=== PATIENT | male | born 1945 | race Caucasian/White ===

== ENCOUNTER 2016-09-27 22:51 | Inpatient (IN) | payer MEDICARE, MEDICAID ==
[~2016-09-27] VITALS: Ht 180.3 cm; Wt 66.2 kg
[~2016-09-27 22:51] MED LIST: ADVAIR 250-501 EACH INH; ADVAIR 500-501 EACH INH; ALBUTEROL SULF8.5 GM INH; AMBIEN10 M1 ORAL; AMLODIPINE BESYL5 MG PO; ASPIRIN81 MG ORAL; BACTRIM-DS1 EA ORAL; COLACE100 MG ORAL; COMBIVENT RESPIM4 GM IH; COMBIVENT2 PUFFS HHN; DOC-Q-LACE100 M1 ORAL; DSS250 MG PO; FLOMAX0.4 MG PO; LOTRISONE CREAM15 GM TP; MILK OF MA400 MG/51 ORAL; MIRTAZAPINE30 MG ORAL; MIRTAZAPINE30 MG PO; NORVASC5 MG ORAL; PROMETHAZINE-C118 M1 ORAL; SPIRIVA18 MCG INH; TAMSULOSIN HCL0.4 MG ORAL; TEMAZEPAM15 MG ORAL; TRAMADOL HCL50 MG ORAL; TYLENOL WITH C1 EACH ORAL
[2016-09-27] MEDS ORDERED: Morphine Sulfate 4mg/ml Inj IVP ONE (23:00)
--- NOTE | 2016-09-27 23:09 | Emergency Room Report ---
History of Present Illness General Chief Complaint: Abdominal Pain Source: Patient, EMS Present Illness HPI Is a 71-year-old male with multiple medical history. He has a history of heavy smoking with COPD and lung cancer. He has a lobectomy done in the past. He's on 5 L of nasal cannula. Denies any abdominal surgery. Patient presents with chief complaint abdominal pain and swelling the last 2 days. [place] nauseous but no vomiting. No bowel movement for 2 days. Pain is diffuse. 9 out of 10. No fever or chills. Nothing made it better. Palpation made it worse. Allergies: Coded Allergies: No Known Allergies (Unverified , 03/22/12) Patient History Past Medical History: see triage record, old chart reviewed, COPD Past Surgical History: other Pertinent Family History: none Social History: Reports: smoking - History Immunizations: other Reviewed Nursing Documentation: PMH: Agreed, PSxH: Agreed Nursing Documentation-PMH Hx Cardiac Problems: Yes Hx Hypertension: Yes Hx Asthma: No Hx Cancer: Yes Hx Gastrointestinal Problems: Yes - GERD Hx Neurological Problems: No Review of Systems Eye: Denies: blurred vision, eye pain ENT: Denies: ear pain, nose congestion, throat swelling Respiratory: Denies: cough, shortness of breath Cardiovascular: Denies: chest pain, palpitations Gastrointestinal: Reports: abdominal pain, Denies: diarrhea, nausea, vomiting Musculoskeletal: Denies: back pain, joint pain Skin: Denies: rash Neurological: Denies: headache, numbness Endocrine: Denies: increased thirst, increased urine Hematologic/Lymphatic: Denies: easy bruising All Other Systems: negative except mentioned in HPI Physical Exam Vital Signs Date Time Temp Pulse Resp B/P Pulse Ox O2 Delivery O2 Flow Rate FiO2 09/27/16 22:52 97.7 103 20 137/74 97 Nasal Cannula 5.0 vitals unremarkable Sp02 EP Interpretation: reviewed, normal - With oxygen General Appearance: alert, mild distress, thin, Chronically Ill Head: normocephalic, atraumatic Eyes: bilateral eye EOMI, bilateral eye PERRL ENT: hearing grossly normal, normal pharynx Neck: full range of motion, supple, no meningismus Respiratory: chest non-tender, lungs clear, decreased breath sounds Cardiovascular #1: regular rate, rhythm, no murmur Gastrointestinal: no mass, no organomegaly, no bruit, non-distended, abnormal bowel sounds - No bowel sounds, distended, tenderness - Diffuse tenderness Musculoskeletal: back normal, normal range of motion Neurologic: alert, oriented x3 Psychiatric: mood/affect normal Skin: warm/dry Medical Decision Making Diagnostic Impression: Primary Impression: SBO (small bowel obstruction) Additional Impressions: Constipation Qualified Codes: K59.00 - Constipation, unspecified COPD (chronic obstructive pulmonary disease) Qualified Codes: J42 - Unspecified chronic bronchitis Anemia in chronic illness Hyponatremia ER Course Present with abdominal pain and distention. CT scan is significant for small bowel instruction versus ileus. He is also very constipated. NG tube placed. We'll also give an enema. No evidence of perforation. Patient be admitted to the hospital. His respiratory status is at baseline. Laboratory Tests Test 09/27/16 23:15 White Blood Count 8.7 K/UL (4.8-10.8) Red Blood Count 3.29 M/UL (4.70-6.10) L Hemoglobin 10.7 G/DL (14.2-18.0) L Hematocrit 30.6 % (42.0-52.0) L Mean Corpuscular Volume 93 FL (80-99) Mean Corpuscular Hemoglobin 32.4 PG (27.0-31.0) H Mean Corpuscular Hemoglobin Concent 34.8 G/DL (32.0-36.0) Red Cell Distribution Width 14.8 % (11.6-14.8) Platelet Count 307 K/UL (150-450) Mean Platelet Volume 5.9 FL (6.5-10.1) L Neutrophils (%) (Auto) 79.7 % (45.0-75.0) H Lymphocytes (%) (Auto) 5.5 % (20.0-45.0) L Monocytes (%) (Auto) 12.9 % (1.0-10.0) H Eosinophils (%) (Auto) 0.1 % (0.0-3.0) Basophils (%) (Auto) 1.8 % (0.0-2.0) Prothrombin Time 11.0 SEC (9.30-11.50) Prothromb Time International Ratio 1.1 (0.9-1.1) Activated Partial Thromboplast Time 28 SEC (23-33) Sodium Level 123 mEQ/L (135-145) L Potassium Level 5.0 mEQ/L (3.4-4.9) H Chloride Level 82 mEQ/L (98-107) L Carbon Dioxide Level 28 mEQ/L (20-30) Anion Gap 13 (5-15) Blood Urea Nitrogen 15 mg/dL (7-23) Creatinine 0.8 mg/dL (0.7-1.2) Estimat Glomerular Filtration Rate mL/min (>60) Glucose Level 128 mg/dL (74-106) H Calcium Level 8.6 mg/dL (8.6-10.2) Total Bilirubin 0.4 mg/dL (0.0-1.2) Aspartate Amino Transf (AST/SGOT) 27 U/L (5-40) Alanine Aminotransferase (ALT/SGPT) 13 U/L (3-41) Alkaline Phosphatase 56 U/L (40-129) Troponin I < 0.30 ng/mL (<=0.30) Total Protein 7.0 g/dL (6.6-8.7) Albumin 3.3 g/dL (3.5-5.2) L Globulin 3.7 g/dL Albumin/Globulin Ratio 0.8 (1.0-2.7) L Lipase 7 U/L (< 60) Lab Results Impression labs with hyponatremia Rhythm Strip Diag. Results EP Interpretation: yes Rate: 100 Rhythm: NSR, no PVC's, no ectopy CT/MRI/US Diagnostic Results CT/MRI/US Diagnostic Results : Imaging Test Ordered: ct abd and pelvis Impression Read by radiologist. Prominent small bowel which may be ileus versus small bowel transient. Transition point near ileocecal junction. Significant stool from the cecum to transverse colon. Distended bladder. Last Vital Signs Date Time Temp Pulse Resp B/P Pulse Ox O2 Delivery O2 Flow Rate FiO2 09/27/16 22:52 97.7 103 20 137/74 97 Nasal Cannula 5.0 Status: improved Disposition: ADMITTED INPATIENT Condition: Serious CARLENE RADER M.D. September 27, 2016 23:09
[2016-09-27] MEDS ORDERED: Tubing IV Cassette IV ONE (23:27)
[2016-09-27 23:44] LABS: INR 1.1 (0.9-1.1)
[2016-09-27 23:48] LABS: BASOPHILS % (AUTO) 1.8 % (0.0-2.0); EOSINOPHILS % (AUTO) 0.1 % (0.0-3.0); LYMPHOCYTES % (AUTO) 5.5 % (20.0-45.0); MEAN CORPUSCULAR HEMOGLOBIN 32.4 PG (27.0-31.0); MEAN CORPUSCULAR HGB CONC 34.8 G/DL (32.0-36.0); MEAN CORPUSCULAR VOLUME 93 FL (80-99); MEAN PLATELET VOLUME 5.9 FL (6.5-10.1); MONOCYTES % (AUTO) 12.9 % (1.0-10.0); NEUTROPHILS % (AUTO) 79.7 % (45.0-75.0); PLATELET COUNT 307 K/UL (150-450); RED BLOOD COUNT 3.29 M/UL (4.70-6.10); RED CELL DISTRIBUTION WIDTH 14.8 % (11.6-14.8); WHITE BLOOD COUNT 8.7 K/UL (4.8-10.8)
[2016-09-27 23:49] LABS: TROPONIN I < 0.30 ng/mL (<=0.30)
[2016-09-27 23:52] LABS: ALANINE AMINOTRANSFERASE 13 U/L (3-41); ALBUMIN/GLOBULIN RATIO 0.8 (1.0-2.7); ANION GAP 13 (5-15); ASPARTATE AMINO TRANSFERASE 27 U/L (5-40); CALCIUM 8.6 mg/dL (8.6-10.2); CARBON DIOXIDE 28 mEQ/L (20-30); CHLORIDE 82 mEQ/L (98-107); CREATININE 0.8 mg/dL (0.7-1.2); HEMOLYSIS 98; LIPASE 7 U/L (< 60); SODIUM 123 mEQ/L (135-145)
[2016-09-28] VITALS (7 sets, daily range): BP systolic 111–146; BP diastolic 59–94
[2016-09-28] MEDS ORDERED: Fleet's Enema 133ml RECTAL ONE (01:15)
[2016-09-28] MEDS ORDERED: Morphine Sulfate 4mg/ml Inj IVP PRN (01:45)
[2016-09-28] MEDS ORDERED: LORazepam 1mg tab ORAL PRN (01:45)
[2016-09-28] MEDS ORDERED: Morphine Sulfate 4mg/ml Inj IVP ONE (02:45)
[2016-09-28] MEDS: DuoNeb 0.5-3(2.5)mg/3ml neb HHN SCH ×6 (03:04→23:00)
[2016-09-28 05:45] LABS: APPEARANCE,URINE CLEAR; KETONES,URINE NEGATIVE (NEGATIVE); LEUKOCYTE ESTERASE ,URINE NEGATIVE (NEGATIVE); NITRITE,URINE NEGATIVE (NEGATIVE); PH,URINE 6 (4.5-8.0); PROTEIN,URINE 1+ (NEGATIVE); UROBILINOGEN,URINE NORMAL MG/DL (0.0-1.0)
[2016-09-28 06:05] LABS: BACTERIA,URINE FEW /HPF; RBC,URINE 0-2 /HPF (0 - 0); SQUAMOUS EPITHELIAL CELL,UR FEW /LPF (NONE/OCC); WBC,URINE 0-2 /HPF (0 - 0)
[2016-09-28] MEDS: Morphine Sulfate 2mg/ml Inj IVP PRN ×2 (06:42→16:25)
--- NOTE | 2016-09-28 09:44 | Diagnostic Imaging Report ---
Clinical Indication: 5/10 abdominal pain with palpitations findings 3 days, last bowel movement 3 days ago Technique: No oral contrast utilized, per emergency room physician request IV administration nonionic contrast. Venous phase spiral acquisition obtained through the abdomen and pelvis. Multiplanar reconstructions were generated. Total dose length product 719 mGycm. CTDIvol(s) 14 mGy. Dose reduction achieved using automated exposure control Comparison: None Findings: There is considerable retained colonic stool. The appendix is probably normal. No evidence of diverticulosis or diverticulitis. There is marked dilatation of most of the small bowel, which is fluid-filled. Some nondilated small bowel loops are seen in the upper mesenteric midline. Uncertain as whether these are proximal or distal loops. It does appear that the small bowel distention extends to the level of the terminal ileum, the distalmost portion of which may be narrowed at the level of the ileocecal valve. The stomach is also massively distended by fluid. There is trace free intraperitoneal fluid. No free intraperitoneal air. The liver is unremarkable. The gallbladder is mildly distended. No gross gallstones. No biliary ductal dilatation. The pancreas, spleen, right adrenal are unremarkable. There is a 15 x 9 mm left adrenal mass. There are bilateral renal subcentimeter low-attenuation lesions which are too small to characterize. The bladder is considerably distended. The prostate is enlarged, measuring 6.3 x 4.7 x 6.7 cm. The included lung bases demonstrate extensive chronic appearing fibrotic changes and hyperinflation. There is calcified pleural scarring on the right, involving both the lateral pleural surface and the diaphragmatic pleural surface. There is a small right-sided pleural effusion. The heart is upper limits of normal in size. The bones demonstrate degenerative spondylosis changes. Impression: Diffuse small bowel distention, etiology not definitely demonstrated. There is some nondilated small bowel, the location of which is uncertain. There is suggestion of stricture or mass at the level of the terminal ileum which could be etiology. Enlarged prostate Distended bladder, possibly related to the above Evidence of constipation. Correlate with clinical findings 15 x 9 mm left adrenal mass, likely but not definitely a benign adenoma. Bilateral renal subcentimeter low-attenuation lesions, too small to characterize, most likely benign simple cortical cysts. 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 The CT scanner at [facility] is accredited by the [employer] and the scans are performed using protocols designed to limit radiation exposure to as low as reasonably achievable to attain images of sufficient resolution adequate for diagnostic evaluation.
[2016-09-28] MEDS: Heparin 5000 units/ml inj SUBQ SCH ×2 (10:00→21:11)
--- NOTE | 2016-09-28 13:17 | Diagnostic Imaging Report ---
Indication: Status post nasogastric tube placement Technique: One view of the chest Comparison: 02/17/2016 Findings: There is a nasogastric tube, tip of which makes a hairpin loop within the mid esophagus. There is hyperinflation of the left lung with bullous change at the left lung base. There is parenchymal opacity at the right lung base which was not evident previously. There is increased interstitial disease in the right lung diffusely. There is evidence of right lung volume loss; reportedly patient has had prior right lobectomy for lung carcinoma. There is generalized mild chronic appearing interstitial prominence. Impression: Malposition of nasogastric tube. This was recognized by the emergency room physician Right basilar parenchymal opacity. New since prior study of February 2016, concerning for pneumonia. Recurrent mass is not excludable. Interstitial disease, appearance of which is suggestive of chronic process but progressive since previous study. COPD changes This agrees with the preliminary interpretation provided by the emergency room physician
--- NOTE | 2016-09-28 14:59 | History & Physical ---
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 September 28, 2016 14:59
[2016-09-28] MEDS ORDERED: Fleet's Mineral Oil Enema RECTAL ONE ×4 (16:00→21:00)
--- NOTE | 2016-09-28 16:08 | Consultation ---
Consult Note Consult Note Surgery Patient seen and examined. Very very poor historian. Provides very little data and/or history. Questions repeatedly asked in different ways, however provides little. Denies prior abdominal surgery. Reports several days feeling distended. Has not had a bowel movement for 2 - 3 days. Denies nausea/vomitting. Came in because of abdominal pain only. Denies prior abdominal surgeries. Not sure what surgeries he's had hwoever. Denies fevers/chills. Has been refusing NGT and enema PMHX: lung CA per records, patient provides no PMHx PSHx: patient not certain, but sure he has not had abdominal surgery ROS very limited as per above FamHx: non contrib SocHx: Denies substance abuse when asked ROS: limited, as per above. PE. Vitals reviewed abdomen distended. Non tender in all quadrants. no hernia palpable, no guarding , no peritonitis Labs reviewed CT personally reviewed - agree with radiology -- colon full of stool to the ICV and global SB dilatation with stomach full of fluid Assessment/Plan SBO advised patient he needs NGT still refused Patient refusing all treatments - advised him that if he does not allow us to treat him then he may need surgery for something that likely does not need surgery at all attempted to reason with him discussed enema - as it seems he may have an SBO due to severe constipation given findings on the CT he says amenable to an enema CATHY ABARCA September 28, 2016 16:08
[2016-09-28] MEDS: D5NS 1,000 ML IV SCH (16:25)
--- NOTE | 2016-09-28 22:31 | General Progress Note ---
Assessment/Plan Assessment/Plan Assessment - Ileus, dysmotility, vs SBO - Metastatic lung CA with poor Px - COPD, O2 dependent - HTN Recommendations - Trial of IV erythro - can consider Relistor or Amitiza - PPI - surgical eval/f/u - NGT, if accepts Subjective Allergies: Coded Allergies: No Known Allergies (Unverified , 03/22/12) Objective Last 24 Hour Vital Signs Date Time Temp Pulse Resp B/P Pulse Ox O2 Delivery O2 Flow Rate FiO2 09/28/16 20:01 97.8 103 20 111/59 95 Nasal Cannula 5.0 09/28/16 19:20 Nasal Cannula 09/28/16 19:18 Nasal Cannula 09/28/16 16:00 108 09/28/16 15:45 Nasal Cannula 5.0 09/28/16 15:45 100 18 98 Nasal Cannula 5.0 09/28/16 15:19 97.3 110 20 138/73 95 Room Air 09/28/16 12:00 100 09/28/16 11:19 97.8 108 20 122/62 95 Room Air 09/28/16 10:50 104 18 97 Nasal Cannula 5.0 09/28/16 10:50 107 18 97 Nasal Cannula 5.0 09/28/16 08:00 116 09/28/16 07:44 97.9 111 20 140/94 96 Room Air 09/28/16 07:10 Nasal Cannula 5.0 09/28/16 07:10 106 17 98 Nasal Cannula 5.0 09/28/16 05:42 98.6 104 17 116/59 100 Nasal Cannula 5.0 09/28/16 04:47 104 17 116/59 100 Nasal Cannula 5.0 09/28/16 03:18 112 17 93 Nasal Cannula 5.0 09/28/16 03:06 98.6 09/28/16 03:05 111 17 97 Nasal Cannula 5.0 09/28/16 03:04 111 17 Nasal Cannula 5.0 09/28/16 02:38 116 19 129/70 97 Nasal Cannula 5.0 09/28/16 00:46 98.6 107 19 146/76 97 Nasal Cannula 5.0 09/28/16 00:02 97.7 09/27/16 22:52 97.7 103 20 137/74 97 Nasal Cannula 5.0 Intake and Output 09/27/16 09/28/16 19:00 07:00 Intake Total 500 ml Balance 500 ml Intake IV Total 500 ml # Voids 1 Laboratory Tests 09/27/16 23:15: White Blood Count 8.7, Red Blood Count 3.29L, Hemoglobin 10.7L, Hematocrit 30.6L , Mean Corpuscular Volume 93, Mean Corpuscular Hemoglobin 32.4H, Mean Corpuscular Hemoglobin Concent 34.8, Red Cell Distribution Width 14.8, Platelet Count 307, Mean Platelet Volume 5.9L, Neutrophils (%) (Auto) 79.7H, Lymphocytes (%) (Auto) 5.5L, Monocytes (%) (Auto) 12.9H, Eosinophils (%) (Auto) 0.1, Basophils (%) (Auto) 1.8, Prothrombin Time 11.0, Prothromb Time International Ratio 1.1, Activated Partial Thromboplast Time 28, Sodium Level 123L, Potassium Level 5.0H, Chloride Level 82L, Carbon Dioxide Level 28, Anion Gap 13, Blood Urea Nitrogen 15, Creatinine 0.8, Estimat Glomerular Filtration Rate , Glucose Level 128H, Calcium Level 8.6, Total Bilirubin 0.4, Aspartate Amino Transf (AST/ SGOT) 27, Alanine Aminotransferase (ALT/SGPT) 13, Alkaline Phosphatase 56, Troponin I < 0.30, Total Protein 7.0, Albumin 3.3L, Globulin 3.7, Albumin/ Globulin Ratio 0.8L, Lipase 7 09/28/16 05:30: Urine Color Yellow, Urine Appearance Clear, Urine pH 6, Urine Specific [place] 1.010, Urine Protein 1+H, Urine Glucose (UA) Negative, Urine Ketones Negative, Urine Occult Blood Negative, Urine Nitrite Negative, Urine Bilirubin Negative, Urine Urobilinogen Normal, Urine Leukocyte Esterase Negative, Urine RBC 0-2H, Urine WBC 0-2, Urine Squamous Epithelial Cells Few, Urine Bacteria Few Height (Feet): 5 Height (Inches): 11.00 Weight (Pounds): 146 ROSA BRYAN September 28, 2016 22:31
[2016-09-29 00:18] VITALS: BP 107/52
[2016-09-29] MEDS: D5NS 1,000 ML IV SCH ×3 (02:09→20:29)
--- NOTE | 2016-09-29 02:16 | History and Physical Report ---
DATE OF ADMISSION: 09/28/2016 REASON FOR ADMISSION: Small bowel obstruction. HISTORY OF PRESENT ILLNESS: This is a 71-year-old male with history of COPD stage IV on O2 3 to 4 liters at home, [id number] lung cancer, status post resection, BPH, insomnia who is undergoing chemotherapy for lung cancer as well as radiation therapy for bony mets at [facility], who presented to the emergency room because of abdominal pain and nausea that started 3 days ago. The patient states that his abdomen is very distended over the last 2 to 3 days. He feels very nauseous, but has not vomited. His abdominal pain is 9/10 in intensity. The patient had a CT of his abdomen and pelvis in the emergency room with contrast that showed diffuse but small bowel distention with possible mass to the level of terminal ileum consistent with a small bowel obstruction. The patient refused NG tube after it caused him too much pain while placing in the emergency room. PAST MEDICAL HISTORY: Includes, 1. Chronic obstructive pulmonary disease gold stage IV, on home oxygen 4 to 5 liters. 2. Right lung non-small cell carcinoma with metastasis to bone and brain status post radiation, lobectomy and chemotherapy. 3. Benign prostatic hypertrophy. 4. Insomnia. 5. History of heroin abuse. 6. Hypertension. PAST SURGICAL HISTORY: Lobectomy. ALLERGIES: No known drug allergies. MEDICATIONS: Reviewed in [employer]. SOCIAL HISTORY: The patient is a former smoker. Heroin user. He does not smoke or use any drugs. Right now, he does not drink alcohol. He lives at assisted living facility at [facility]. PHYSICAL EXAMINATION: VITAL SIGNS: Temperature is 97.8 degrees, pulse is 108, respiratory rate 20, blood pressure 122/62, and O2 saturation 95% on room air. GENERAL: In no acute distress. The patient is very anxious. HEENT: Normocephalic/atraumatic. NECK: Supple. No JVD. LUNGS: Clear to auscultation bilaterally. No crackles, rhonchi, or rales. CARDIOVASCULAR: Regular rate and rhythm. Normal S1 and S2. ABDOMEN: Firm and distended. No bowel sounds appreciated. No rebound tenderness. EXTREMITIES: No clubbing, cyanosis, or edema. PSYCH: Anxious, but appropriate mood. SKIN: No rashes. Normal skin tone. LABORATORY AND DIAGNOSTIC DATA: CBC, white count of 8.7, hemoglobin 10.7, and platelet count 307,000. BMP, sodium 143, potassium 5, chloride 82, CO2 28, BUN 15, and creatinine 0.8. Lipase is 7. INR is 1.1. UA 0 to 2 red blood cells, no white blood cells. 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 ASSESSMENT: 1. Abdominal distention with nausea concerning for small bowel obstruction versus ileus secondary to narcotic bowel. 2. Chronic obstructive pulmonary disease gold stage IV, on home oxygen. 3. Benign prostatic hypertrophy. 4. 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 5. History of heroine abuse. 6. Hypertension. 7. Insomnia. 8. Hypovolemic, hyponatremia and hyperkalemia. PLAN: 1. Telemetry. 2. Surgery consult with Dr. Suggs. 3. GI consult with Dr. John. 4. NPO. 5. I discussed at length the importance of placing NG tube. We will try to give morphine before NG tube placement, which will help with his symptoms through decompression. 6. D5 NS at 100 mL/hour. 7. Code status is full code. 8. DVT prophylaxis with heparin. Sabas Haile MD DR: SAILAJA JOB#: [id number] CC:
[2016-09-29] MEDS: DuoNeb 0.5-3(2.5)mg/3ml neb HHN SCH ×6 (03:00→22:58)
[2016-09-29 04:04] VITALS: BP 109/62
[2016-09-29 08:00] VITALS: BP 116/46
[2016-09-29] MEDS: Pantoprazole Inj IVP SCH (08:36)
[2016-09-29] MEDS: Erythromycin Inj 50 MG in NS 55 ML IVPB SCH ×3 (08:36→20:30)
[2016-09-29] MEDS: Heparin 5000 units/ml inj SUBQ SCH ×2 (08:37→20:33)
[2016-09-29] MEDS: Advair 250/50 Inhaler - 14 dose INH SCH ×2 (09:06→18:00)
--- NOTE | 2016-09-29 11:09 | General Progress Note ---
Progress Note Progress Note Surgery Patient hostile. Tells me to leave. Doesn't want to talk Nonetheless, explained to him that enemas were unsuccessful, needs an NGT risks of bowel perforation very high should he go untreated agrees to NGT abdomen distended, non tender he continues to deny nausea/vomitting isn't having abdominal pain, just feels distended abdomen distended non tender plan nursing to place NGT, continue it on LCWS will need fluid resuscitation once on suction Labs daily with NGT and maintenance IVF once decompressed consider Upper GI w/ SBFT to evaluate the terminal ileum CATHY ABARCA September 29, 2016 11:09
[2016-09-29 11:18] LABS: MEAN CORPUSCULAR HEMOGLOBIN 30.2 PG (27.0-31.0); MEAN CORPUSCULAR HGB CONC 32.4 G/DL (32.0-36.0); MEAN CORPUSCULAR VOLUME 93 FL (80-99); MEAN PLATELET VOLUME 6.5 FL (6.5-10.1); PLATELET COUNT 305 K/UL (150-450); RED BLOOD COUNT 3.23 M/UL (4.70-6.10); RED CELL DISTRIBUTION WIDTH 15.3 % (11.6-14.8); WHITE BLOOD COUNT 4.2 K/UL (4.8-10.8)
[2016-09-29 11:26] LABS: ANION GAP 11 (5-15); CALCIUM 7.5 mg/dL (8.6-10.2); CARBON DIOXIDE 32 mEQ/L (20-30); CHLORIDE 85 mEQ/L (98-107); CREATININE 0.8 mg/dL (0.7-1.2); HEMOLYSIS 2; POTASSIUM 3.6 mEQ/L (3.4-4.9); SODIUM 128 mEQ/L (135-145)
--- NOTE | 2016-09-29 11:43 | Diagnostic Imaging Report ---
Indication: NG tube Comparison: 09/28/16 Single view of the abdomen obtained NG tube was repositioned and is now in good position. Both the proximal port and tip are within the stomach. Impression: NG tube satisfactory in position
[2016-09-29 11:44] LABS: ANISOCYTOSIS 1+; BAND NEUTROPHILS % (MANUAL) 21 % (0-8); BASOPHILS % (MANUAL) 0 % (0-2); EOSINOPHILS % (MANUAL) 2 % (0-3); HYPOCHROMASIA 2+; LYMPHOCYTES % (MANUAL) 20 % (20-45); NEUTROPHILS % (MANUAL) 43 % (45-75); PLATELET ESTIMATE ADEQUATE; PLATELET MORPHOLOGY NORMAL; TOTAL CELLS COUNTED 100
[2016-09-29 12:00] VITALS: BP 113/72
[2016-09-29] MEDS: Morphine Sulfate 2mg/ml Inj IVP PRN ×2 (12:20→18:24)
[2016-09-29 16:00] VITALS: BP 104/63
--- NOTE | 2016-09-29 16:01 | Consultation ---
DATE OF CONSULTATION: 09/28/2016 NOTE: POOR AUDIO QUALITY: GASTROENTEROLOGY CONSULTATION CONSULTING PHYSICIAN: Marlene John M.D. CHIEF COMPLAINT: I was asked to see this patient by Dr. Sabas Haile for evaluation of abdominal issues. HISTORY OF PRESENT ILLNESS: The patient is a 72-year-old, unfortunate white male with metastatic non-small cell carcinoma, status post resection and was brought into the hospital due to abdominal distention and nausea, which started prior to admission. The patient is somewhat of a poor historian and does not give much details. He has had a bowel movement three days ago. Attempts were made to place a nasogastric tube another one. There has been no vomiting here in the hospital and has not had a bowel movement either. The patient has had a colonoscopy. The CT scan done in the emergency room showed some degree of small bowel distention as well as a possible stricture in the terminal ileum. PAST MEDICAL HISTORY: History of severe chronic obstructive pulmonary disease, , and the patient is on home oxygen, history of metastatic non-small cell carcinoma with metastases to bone and brain, status post radiation and surgery and chemotherapy, benign prostatic hypertrophy, hypertension, and history of substance abuse. PAST SURGICAL HISTORY: Status post lobectomy. ALLERGIES: None. SOCIAL HISTORY: The patient is a former heavy smoker and drug user. He lives in assisted living. FAMILY HISTORY: Noncontributory. REVIEW OF SYSTEMS: Otherwise negative. PHYSICAL EXAMINATION: GENERAL: The patient is debilitated thin white man, seen in his room. HEENT: Normocephalic and atraumatic. Sclerae anicteric. Dentition is poor. NECK: Supple. CHEST: Revealed coarse breath sounds throughout. CARDIOVASCULAR: Revealed a regular rate. ABDOMEN: Soft, but distended. There is some mild tenderness to palpation, but without guarding or rebound. No masses. EXTREMITIES: Revealed no edema. LABORATORY AND DIAGNOSTIC DATA: Laboratory data noted. ASSESSMENT: This patient presents with abdominal distention and some small bowel evaluation. He also has mixed . The differential diagnosis reveal obstructive events and stricture of the distal small bowel. Also ileus or bowel . He is refusing nasogastric and some of the laxative recommendations. The trial of erythromycin given to see if some support will include this the bowel gas pattern. oral medications motility. The surgical consultation was obtained in addition, and we will be following the patient as well. The patient NPO. RECOMMENDATIONS: 1. medications. 2. . 3. Trial of intravenous erythromycin for . 4. Proton pump inhibitor. 5. Follow up him closely. Thank you for asking me to participate in care this patient. Marlene John M.D. DR: Darnell JOB#: [id number] CC:
[2016-09-29] MEDS ORDERED: D5NS 1000ml IV ONE (16:16)
--- NOTE | 2016-09-29 16:34 | Internal Med Progress Note ---
Subjective Date of Service: September 29, 2016 Physician Name Eduard Davis Attending Physician Sabas Haile M.D. Current Medications Medications (Trade) Dose Ordered Sig/Romero Route PRN Reason Start Time Stop Time Status Last Admin Dose Admin Acetaminophen (Tylenol) 650 mg Q4H PRN ORAL Mild Pain (Pain Scale 1-3) 09/28/16 01:45 10/28/16 01:44 Albuterol/ Ipratropium (DuoNeb 0.5-3(2.5)mg/3ml) 3 ml Q4HRT HHN 09/28/16 03:00 10/03/16 02:59 09/28/16 10:50 Bisacodyl (Dulcolax) 10 mg DAILYPRN PRN RECTAL Constipation 09/28/16 15:15 10/28/16 15:14 Dextrose STAT PRN IV Hypoglycemia 09/28/16 01:45 10/28/16 01:44 Dextrose/Sodium Chloride (D5ns) 1,000 ml @ 100 mls/hr Q10H IV 09/28/16 15:00 10/28/16 14:59 09/29/16 11:00 Erythromycin Lactobionate/ Sodium Chloride (Erythromycin/ Sodium Chloride) 55 ml @ 110 mls/hr [id number] ERYTHROMYCIN IVPB 09/29/16 08:00 10/06/16 07:59 09/29/16 14:25 Glycerin (Glycerin) 1 supp BEDTIME RECTAL 09/29/16 21:00 10/29/16 20:59 Heparin Sodium (Porcine) (Heparin 5000 units/ml) 5,000 units EVERY 12 HOURS SUBQ 09/28/16 09:00 10/28/16 08:59 09/28/16 21:11 Lorazepam (Ativan) 1 mg Q4H PRN ORAL For Anxiety 09/28/16 01:45 10/05/16 01:44 Morphine Sulfate (Morphine Sulfate) 2 mg Q4H PRN IVP Moderate Pain (Pain Scale 4-6) 09/28/16 01:45 10/05/16 01:44 09/29/16 12:20 Morphine Sulfate (Morphine Sulfate) 4 mg Q4H PRN IVP Severe Pain (Pain Scale 7-10) 09/28/16 01:45 10/05/16 01:44 09/29/16 01:44 Ondansetron HCl (Zofran) 4 mg Q6H PRN IVP Nausea & Vomiting 09/28/16 01:45 10/28/16 01:44 Pantoprazole (Protonix) 40 mg DAILY IVP 09/29/16 09:00 10/29/16 08:59 09/29/16 08:36 Salmeterol Xinafoate/ Fluticasone 1 puffs 1 puffs BID INH 09/29/16 09:00 10/29/16 08:59 09/29/16 09:06 Tiotropium [place] (Spiriva Inhaler) 1 puff DAILY INH 09/29/16 09:00 10/29/16 08:59 09/29/16 09:07 Allergies: Coded Allergies: No Known Allergies (Unverified , 03/22/12) ROS Limited/Unobtainable: No Constitutional: Reports: no symptoms HEENT: Reports: no symptoms Cardiovascular: Reports: no symptoms Respiratory: Reports: no symptoms Gastrointestinal/Abdominal: Reports: abdomen distended, abdominal pain Genitourinary: Reports: no symptoms Neurologic/Psychiatric: Reports: no symptoms Subjective 71 YO M admitted with small bowel obstruction. Cover for Int Med-Dr Haile Objective Last Vital Signs Date Time Temp Pulse Resp B/P Pulse Ox O2 Delivery O2 Flow Rate FiO2 09/29/16 16:00 98.0 93 18 104/63 95 Room Air 09/29/16 15:30 3.0 09/29/16 08:00 95 General Appearance: alert, mild distress, thin EENT: PERRL/EOMI, normal ENT inspection Neck: non-tender, normal alignment, supple Cardiovascular: normal peripheral pulses, normal rate, regular rhythm, no gallop/murmur, no JVD Respiratory/Chest: crackles/rales, rhonchi - bilaterally, expiratory wheezing Abdomen: decreased bowel sounds, distended, guarding, tender Extremities: normal range of motion 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, no motor/sensory deficits Skin: normal pigmentation, warm/dry Laboratory Tests Test 09/29/16 10:30 White Blood Count 4.2 K/UL (4.8-10.8) #L Red Blood Count 3.23 M/UL (4.70-6.10) L Hemoglobin 9.8 G/DL (14.2-18.0) L Hematocrit 30.2 % (42.0-52.0) L Mean Corpuscular Volume 93 FL (80-99) Mean Corpuscular Hemoglobin 30.2 PG (27.0-31.0) Mean Corpuscular Hemoglobin Concent 32.4 G/DL (32.0-36.0) Red Cell Distribution Width 15.3 % (11.6-14.8) H Platelet Count 305 K/UL (150-450) Mean Platelet Volume 6.5 FL (6.5-10.1) Neutrophils (%) (Auto) % (45.0-75.0) Lymphocytes (%) (Auto) % (20.0-45.0) Monocytes (%) (Auto) % (1.0-10.0) Eosinophils (%) (Auto) % (0.0-3.0) Basophils (%) (Auto) % (0.0-2.0) Differential Total Cells Counted 100 Neutrophils % (Manual) 43 % (45-75) L Lymphocytes % (Manual) 20 % (20-45) Monocytes % (Manual) 14 % (1-10) H Eosinophils % (Manual) 2 % (0-3) Basophils % (Manual) 0 % (0-2) Band Neutrophils 21 % (0-8) H Platelet Estimate Adequate Platelet Morphology Normal Hypochromasia 2+ Anisocytosis 1+ Sodium Level 128 mEQ/L (135-145) L Potassium Level 3.6 mEQ/L (3.4-4.9) Chloride Level 85 mEQ/L (98-107) L Carbon Dioxide Level 32 mEQ/L (20-30) H Anion Gap 11 (5-15) Blood Urea Nitrogen 14 mg/dL (7-23) Creatinine 0.8 mg/dL (0.7-1.2) Estimat Glomerular Filtration Rate mL/min (>60) Glucose Level 113 mg/dL (74-106) H Calcium Level 7.5 mg/dL (8.6-10.2) L Intake and Output 09/28/16 09/29/16 19:00 07:00 Intake Total 200 ml 1200 ml Output Total 1250 ml 800 ml Balance -1050 ml 400 ml Intake IV Total 200 ml 1200 ml Output Urine Total 1250 ml 800 ml Assessment/Plan Problem List: (1) Lung cancer metastatic to bone Assessment & Plan: S/P resection and currently on chemo (2) BPH (benign prostatic hyperplasia) (3) Abdominal distension (4) Abdominal pain (5) SBO (small bowel obstruction) Assessment & Plan: See surgery and GI notes. Cont NG tube (6) COPD (chronic obstructive pulmonary disease) (7) Hypertension Status: not improved EDUARD DAVIS September 29, 2016 16:34
[2016-09-29 20:00] VITALS: BP 107/53
[2016-09-29] MEDS: Glycerin Supp RECTAL SCH (20:30)
--- NOTE | 2016-09-29 21:24 | General Progress Note ---
Assessment/Plan Assessment/Plan Assessment - Ileus, dysmotility, vs SBO - Metastatic lung CA with poor Px - COPD, O2 dependent - HTN Recommendations - Trial of IV erythro - PPI - surgical f/u - NGT Subjective Allergies: Coded Allergies: No Known Allergies (Unverified , 03/22/12) Subjective Feels same still with distended stomach NGT in not putting out much at time of my visit Objective Last 24 Hour Vital Signs Date Time Temp Pulse Resp B/P Pulse Ox O2 Delivery O2 Flow Rate FiO2 09/29/16 20:00 97.2 94 20 107/53 97 Room Air 09/29/16 19:32 Nasal Cannula 3.0 32 09/29/16 18:54 98.0 09/29/16 16:00 98 09/29/16 16:00 98.0 93 18 104/63 95 Room Air 09/29/16 15:30 Nasal Cannula 09/29/16 15:30 Nasal Cannula 3.0 09/29/16 12:00 96.0 93 18 113/72 100 Room Air 09/29/16 12:00 96 09/29/16 11:30 Nasal Cannula 09/29/16 11:30 Nasal Cannula 3.0 09/29/16 08:00 99 09/29/16 08:00 97.3 89 18 116/46 Nasal Cannula 2.0 95 09/29/16 07:30 Nasal Cannula 3.0 09/29/16 07:30 Nasal Cannula 3.0 32 09/29/16 07:30 72 18 100 Nasal Cannula 3.0 32 09/29/16 04:04 98.8 100 20 109/62 98 Room Air 09/29/16 04:00 97 09/29/16 03:28 Nasal Cannula 3.0 32 09/29/16 03:27 Nasal Cannula 09/29/16 03:25 Nasal Cannula 09/29/16 01:07 Nasal Cannula 09/29/16 01:07 Nasal Cannula 09/29/16 00:18 98.3 107 21 107/52 95 Room Air 09/29/16 00:00 106 Intake and Output 09/28/16 09/29/16 19:00 07:00 Intake Total 200 ml 1200 ml Output Total 1250 ml 800 ml Balance -1050 ml 400 ml Intake IV Total 200 ml 1200 ml Output Urine Total 1250 ml 800 ml Laboratory Tests 09/29/16 10:30: White Blood Count 4.2#L, Red Blood Count 3.23L, Hemoglobin 9.8L, Hematocrit 30.2L, Mean Corpuscular Volume 93, Mean Corpuscular Hemoglobin 30.2, Mean Corpuscular Hemoglobin Concent 32.4, Red Cell Distribution Width 15.3H, Platelet Count 305, Mean Platelet Volume 6.5, Neutrophils (%) (Auto) , Lymphocytes (%) (Auto) , Monocytes (%) (Auto) , Eosinophils (%) (Auto) , Basophils (%) (Auto) , Differential Total Cells Counted 100, Neutrophils % ( Manual) 43L, Lymphocytes % (Manual) 20, Monocytes % (Manual) 14H, Eosinophils % (Manual) 2, Basophils % (Manual) 0, Band Neutrophils 21H, Platelet Estimate Adequate, Platelet Morphology Normal, Hypochromasia 2+, Anisocytosis 1+, Sodium Level 128L, Potassium Level 3.6, Chloride Level 85L, Carbon Dioxide Level 32H, Anion Gap 11, Blood Urea Nitrogen 14, Creatinine 0.8, Estimat Glomerular Filtration Rate , Glucose Level 113H, Calcium Level 7.5L Height (Feet): 5 Height (Inches): 11.00 Weight (Pounds): 146 Objective Thin WM NCAT supple Coarse ronchi and wheezes RRR Abd distended, tympanitic no edema non focal ROSA BRYAN September 29, 2016 21:24
[2016-09-30] VITALS (7 sets, daily range): BP systolic 98–123; BP diastolic 53–64
[2016-09-30] MEDS: Erythromycin Inj 50 MG in NS 55 ML IVPB SCH ×4 (01:33→22:11)
[2016-09-30] MEDS: DuoNeb 0.5-3(2.5)mg/3ml neb HHN SCH ×7 (03:00→23:00)
[2016-09-30] MEDS: D5NS 1,000 ML IV SCH ×2 (05:16→12:23)
[2016-09-30] MEDS: Advair 250/50 Inhaler - 14 dose INH SCH ×2 (07:52→19:58)
[2016-09-30] MEDS: Heparin 5000 units/ml inj SUBQ SCH ×2 (08:29→22:16)
[2016-09-30] MEDS: Pantoprazole Inj IVP SCH ×2 (08:30→22:07)
[2016-09-30 08:35] LABS: BASOPHILS % (AUTO) 2.5 % (0.0-2.0); EOSINOPHILS % (AUTO) 1.9 % (0.0-3.0); LYMPHOCYTES % (AUTO) 12.9 % (20.0-45.0); MEAN CORPUSCULAR HEMOGLOBIN 31.1 PG (27.0-31.0); MEAN CORPUSCULAR HGB CONC 32.6 G/DL (32.0-36.0); MEAN CORPUSCULAR VOLUME 95 FL (80-99); MEAN PLATELET VOLUME 6.8 FL (6.5-10.1); MONOCYTES % (AUTO) 16.9 % (1.0-10.0); NEUTROPHILS % (AUTO) 65.8 % (45.0-75.0); PLATELET COUNT 281 K/UL (150-450); RED BLOOD COUNT 2.99 M/UL (4.70-6.10); RED CELL DISTRIBUTION WIDTH 15.5 % (11.6-14.8); WHITE BLOOD COUNT 4.6 K/UL (4.8-10.8)
[2016-09-30] MEDS ORDERED: Tubing IV Secondary IV ONE (09:12)
[2016-09-30 09:26] LABS: ANION GAP 10 (5-15); CALCIUM 6.9 mg/dL (8.6-10.2); CARBON DIOXIDE 32 mEQ/L (20-30); CHLORIDE 92 mEQ/L (98-107); CREATININE 0.7 mg/dL (0.7-1.2); HEMOLYSIS 2; POTASSIUM 3.3 mEQ/L (3.4-4.9); SODIUM 134 mEQ/L (135-145)
--- NOTE | 2016-09-30 09:44 | General Progress Note ---
Progress Note Progress Note Surgery reports pain in legs but not belly. Feels slightly better now that NGT has been doing decompression. Denies abdominal pain. Does not feel nausea. Confrontational AVSS NAD, AAOx3 unlabored abdomen distended, non tender in all quads, no gaurding, no signs of peritonitis , soft NGT bilious output 1 L Labs reviewed cr 0.7 k 3.3 a/p SBO cont NGT decompression keep NGT RIMA DARDEN ALLEN September 30, 2016 09:44
[2016-09-30] MEDS: Morphine Sulfate 2mg/ml Inj IVP PRN ×4 (11:37→22:11)
--- NOTE | 2016-09-30 14:02 | General Progress Note ---
Assessment/Plan Assessment/Plan Assessment - Ileus, dysmotility, vs SBO - blood tinged NGT drainage - ? due to continuous suction - Metastatic lung CA with poor Px - COPD, O2 dependent - HTN Recommendations - IV erythro - change suction to LIS - monitor CBC - will consider EGD if bleeding continues - PPI - surgical f/u Subjective Allergies: Coded Allergies: No Known Allergies (Unverified , 03/22/12) Subjective abd less distended NGT output dark, and blood tinged Objective Last 24 Hour Vital Signs Date Time Temp Pulse Resp B/P Pulse Ox O2 Delivery O2 Flow Rate FiO2 09/30/16 12:00 96.0 89 18 112/64 93 Room Air 09/30/16 12:00 92 09/30/16 11:06 Nasal Cannula 5.0 09/30/16 11:06 Nasal Cannula 5.0 09/30/16 09:40 84 18 96 Nasal Cannula 5.0 09/30/16 08:00 97.0 81 19 102/60 97 Room Air 09/30/16 08:00 88 09/30/16 07:54 88 18 97 Nasal Cannula 5.0 09/30/16 07:54 88 18 97 Nasal Cannula 5.0 09/30/16 07:52 84 18 96 Nasal Cannula 5.0 09/30/16 07:52 88 18 97 Nasal Cannula 5.0 09/30/16 07:52 84 18 Nasal Cannula 5.0 09/30/16 07:52 Nasal Cannula 5.0 09/30/16 07:52 Nasal Cannula 5.0 09/30/16 07:52 Nasal Cannula 5.0 09/30/16 06:39 Nasal Cannula 3.0 09/30/16 05:13 Nasal Cannula 3.0 32 09/30/16 04:00 97.7 91 20 113/61 96 Nasal Cannula 2.0 09/30/16 04:00 87 09/30/16 03:00 Nasal Cannula 3.0 09/30/16 00:30 97.7 09/30/16 00:26 97.7 91 20 113/61 96 Room Air 09/30/16 00:00 90 09/29/16 23:00 Nasal Cannula 3.0 09/29/16 23:00 Nasal Cannula 3.0 32 09/29/16 20:00 97.2 94 20 107/53 97 Room Air 09/29/16 20:00 91 09/29/16 19:32 Nasal Cannula 3.0 32 09/29/16 19:00 Nasal Cannula 3.0 09/29/16 19:00 Nasal Cannula 09/29/16 16:00 98 09/29/16 16:00 98.0 93 18 104/63 95 Room Air 09/29/16 15:30 Nasal Cannula 09/29/16 15:30 Nasal Cannula 3.0 Intake and Output 09/29/16 09/30/16 19:00 07:00 Intake Total 1155 ml 1150 ml Balance 1155 ml 1150 ml Intake IV Total 1155 ml 1150 ml Laboratory Tests 09/30/16 07:10: White Blood Count 4.6L, Red Blood Count 2.99L, Hemoglobin 9.3L, Hematocrit 28.5L , Mean Corpuscular Volume 95, Mean Corpuscular Hemoglobin 31.1H, Mean Corpuscular Hemoglobin Concent 32.6, Red Cell Distribution Width 15.5H, Platelet Count 281, Mean Platelet Volume 6.8, Neutrophils (%) (Auto) 65.8, Lymphocytes (%) (Auto) 12.9L, Monocytes (%) (Auto) 16.9H, Eosinophils (%) (Auto ) 1.9, Basophils (%) (Auto) 2.5H, Sodium Level 134L, Potassium Level 3.3L, Chloride Level 92L, Carbon Dioxide Level 32H, Anion Gap 10, Blood Urea Nitrogen 10, Creatinine 0.7, Estimat Glomerular Filtration Rate , Glucose Level 100, Calcium Level 6.9L Height (Feet): 5 Height (Inches): 11.00 Weight (Pounds): 146 Objective Thin WM NCAT supple Coarse ronchi and wheezes RRR Abd less distended, tympanitic no edema non focal ROSA BRYAN September 30, 2016 14:02
[2016-09-30 14:41] LABS: BASOPHILS % (AUTO) 1.2 % (0.0-2.0); EOSINOPHILS % (AUTO) 0.8 % (0.0-3.0); MEAN CORPUSCULAR HEMOGLOBIN 30.6 PG (27.0-31.0); MEAN CORPUSCULAR HGB CONC 32.1 G/DL (32.0-36.0); MEAN CORPUSCULAR VOLUME 95 FL (80-99); MEAN PLATELET VOLUME 6.5 FL (6.5-10.1); MONOCYTES % (AUTO) 15.5 % (1.0-10.0); NEUTROPHILS % (AUTO) 74.4 % (45.0-75.0); PLATELET COUNT 281 K/UL (150-450); RED BLOOD COUNT 2.88 M/UL (4.70-6.10); RED CELL DISTRIBUTION WIDTH 15.5 % (11.6-14.8); WHITE BLOOD COUNT 5.5 K/UL (4.8-10.8)
--- NOTE | 2016-09-30 16:06 | Internal Med Progress Note ---
Subjective Date of Service: September 30, 2016 Physician Name Janice Davis Attending Physician Sabas Haile M.D. Current Medications Medications (Trade) Dose Ordered Sig/Romero Route PRN Reason Start Time Stop Time Status Last Admin Dose Admin Acetaminophen (Tylenol) 650 mg Q4H PRN ORAL Mild Pain (Pain Scale 1-3) 09/28/16 01:45 10/28/16 01:44 Albuterol/ Ipratropium (DuoNeb 0.5-3(2.5)mg/3ml) 3 ml Q4HRT HHN 09/28/16 03:00 10/03/16 02:59 09/28/16 10:50 Bisacodyl (Dulcolax) 10 mg DAILYPRN PRN RECTAL Constipation 09/28/16 15:15 10/28/16 15:14 Dextrose STAT PRN IV Hypoglycemia 09/28/16 01:45 10/28/16 01:44 Dextrose/Sodium Chloride (D5ns) 1,000 ml @ 100 mls/hr Q10H IV 09/28/16 15:00 10/28/16 14:59 09/30/16 12:23 Erythromycin Lactobionate/ Sodium Chloride (Erythromycin/ Sodium Chloride) 55 ml @ 110 mls/hr [id number] ERYTHROMYCIN IVPB 09/29/16 08:00 10/06/16 07:59 09/30/16 14:23 Glycerin (Glycerin) 1 supp BEDTIME RECTAL 09/29/16 21:00 10/29/16 20:59 09/29/16 20:30 Heparin Sodium (Porcine) (Heparin 5000 units/ml) 5,000 units EVERY 12 HOURS SUBQ 09/28/16 09:00 10/28/16 08:59 09/30/16 08:29 Lorazepam (Ativan) 1 mg Q4H PRN ORAL For Anxiety 09/28/16 01:45 10/05/16 01:44 Morphine Sulfate (Morphine Sulfate) 2 mg Q4H PRN IVP Moderate Pain (Pain Scale 4-6) 09/28/16 01:45 10/05/16 01:44 09/30/16 11:37 Morphine Sulfate (Morphine Sulfate) 4 mg Q4H PRN IVP Severe Pain (Pain Scale 7-10) 09/28/16 01:45 10/05/16 01:44 09/29/16 01:44 Ondansetron HCl (Zofran) 4 mg Q6H PRN IVP Nausea & Vomiting 09/28/16 01:45 10/28/16 01:44 Pantoprazole (Protonix) 40 mg Q12HR IVP 09/30/16 21:00 10/30/16 20:59 Salmeterol Xinafoate/ Fluticasone 1 puffs 1 puffs BID INH 09/29/16 09:00 10/29/16 08:59 09/30/16 07:52 Tiotropium [place] (Spiriva Inhaler) 1 puff DAILY INH 09/29/16 09:00 10/29/16 08:59 09/30/16 07:54 Allergies: Coded Allergies: No Known Allergies (Unverified , 03/22/12) ROS Limited/Unobtainable: No Constitutional: Reports: no symptoms HEENT: Reports: no symptoms Cardiovascular: Reports: no symptoms Respiratory: Reports: no symptoms Gastrointestinal/Abdominal: Reports: abdominal pain Genitourinary: Reports: no symptoms Neurologic/Psychiatric: Reports: no symptoms Subjective 71 YO M admitted with small bowel obstruction. Cover for [facility]-Dr Haile Objective Last Vital Signs Date Time Temp Pulse Resp B/P Pulse Ox O2 Delivery O2 Flow Rate FiO2 09/30/16 15:20 Nasal Cannula 4.0 09/30/16 12:00 96.0 89 18 112/64 93 09/30/16 05:13 32 Laboratory Tests Test 09/30/16 07:10 09/30/16 14:20 White Blood Count 4.6 K/UL (4.8-10.8) L 5.5 K/UL (4.8-10.8) Red Blood Count 2.99 M/UL (4.70-6.10) L 2.88 M/UL (4.70-6.10) L Hemoglobin 9.3 G/DL (14.2-18.0) L 8.8 G/DL (14.2-18.0) L Hematocrit 28.5 % (42.0-52.0) L 27.4 % (42.0-52.0) L Mean Corpuscular Volume 95 FL (80-99) 95 FL (80-99) Mean Corpuscular Hemoglobin 31.1 PG (27.0-31.0) H 30.6 PG (27.0-31.0) Mean Corpuscular Hemoglobin Concent 32.6 G/DL (32.0-36.0) 32.1 G/DL (32.0-36.0) Red Cell Distribution Width 15.5 % (11.6-14.8) H 15.5 % (11.6-14.8) H Platelet Count 281 K/UL (150-450) 281 K/UL (150-450) Mean Platelet Volume 6.8 FL (6.5-10.1) 6.5 FL (6.5-10.1) Neutrophils (%) (Auto) 65.8 % (45.0-75.0) 74.4 % (45.0-75.0) Lymphocytes (%) (Auto) 12.9 % (20.0-45.0) L 8.0 % (20.0-45.0) L Monocytes (%) (Auto) 16.9 % (1.0-10.0) H 15.5 % (1.0-10.0) H Eosinophils (%) (Auto) 1.9 % (0.0-3.0) 0.8 % (0.0-3.0) Basophils (%) (Auto) 2.5 % (0.0-2.0) H 1.2 % (0.0-2.0) Sodium Level 134 mEQ/L (135-145) L Potassium Level 3.3 mEQ/L (3.4-4.9) L Chloride Level 92 mEQ/L (98-107) L Carbon Dioxide Level 32 mEQ/L (20-30) H Anion Gap 10 (5-15) Blood Urea Nitrogen 10 mg/dL (7-23) Creatinine 0.7 mg/dL (0.7-1.2) Estimat Glomerular Filtration Rate mL/min (>60) Glucose Level 100 mg/dL (74-106) Calcium Level 6.9 mg/dL (8.6-10.2) L Intake and Output 09/29/16 09/30/16 19:00 07:00 Intake Total 1155 ml 1150 ml Balance 1155 ml 1150 ml Intake IV Total 1155 ml 1150 ml Objective General Appearance: alert, mild distress, thin EENT: PERRL/EOMI, normal ENT inspection Neck: non-tender, normal alignment, supple Cardiovascular: normal peripheral pulses, normal rate, regular rhythm, no gallop/murmur, no JVD Respiratory/Chest: crackles/rales, rhonchi - bilaterally, expiratory wheezing Abdomen: decreased bowel sounds, distended, guarding, tender Extremities: normal range of motion 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 Cont NG tube (6) COPD (chronic obstructive pulmonary disease) (7) Hypertension Status: not improved JANICE DAVIS September 30, 2016 16:06
[2016-09-30] MEDS: Glycerin Supp RECTAL SCH (22:06)
[2016-10-01] VITALS: BP 115/61
[2016-10-01] MEDS: Erythromycin Inj 50 MG in NS 55 ML IVPB SCH ×4 (03:00→20:31)
[2016-10-01] MEDS: DuoNeb 0.5-3(2.5)mg/3ml neb HHN SCH ×6 (03:00→23:00)
[2016-10-01] MEDS: D5NS 1,000 ML IV SCH ×2 (03:06→13:00)
[2016-10-01 04:15] VITALS: BP 132/63
[2016-10-01] MEDS: Morphine Sulfate 2mg/ml Inj IVP PRN ×2 (06:25→12:57)
[2016-10-01 07:03] LABS: BASOPHILS % (AUTO) 1.8 % (0.0-2.0); EOSINOPHILS % (AUTO) 1.1 % (0.0-3.0); LYMPHOCYTES % (AUTO) 11.3 % (20.0-45.0); MEAN CORPUSCULAR HEMOGLOBIN 30.2 PG (27.0-31.0); MEAN CORPUSCULAR HGB CONC 31.5 G/DL (32.0-36.0); MEAN CORPUSCULAR VOLUME 96 FL (80-99); MEAN PLATELET VOLUME 6.3 FL (6.5-10.1); MONOCYTES % (AUTO) 16.9 % (1.0-10.0); NEUTROPHILS % (AUTO) 68.9 % (45.0-75.0); PLATELET COUNT 274 K/UL (150-450); RED BLOOD COUNT 3.03 M/UL (4.70-6.10); RED CELL DISTRIBUTION WIDTH 15.7 % (11.6-14.8); WHITE BLOOD COUNT 5.8 K/UL (4.8-10.8)
[2016-10-01 07:27] LABS: ANION GAP 11 (5-15); CARBON DIOXIDE 30 mEQ/L (20-30); CHLORIDE 95 mEQ/L (98-107); CREATININE 0.7 mg/dL (0.7-1.2); HEMOLYSIS 2; POTASSIUM 3.6 mEQ/L (3.4-4.9); SODIUM 136 mEQ/L (135-145)
--- NOTE | 2016-10-01 07:37 | General Progress Note ---
Progress Note Progress Note Surgery Feels fine. In more amicable mood this morning. Converses and discusses management. Denies pain. Denies nausea/vomitting. Only pain is in legs, not abdomen. Feels less bloated Denies flatus/BM AVSS NAD AAO unlabored Soft, much less distended than yesterday, however still some distension nontender to palp all quads chem pending cbc reviewed NGT -- no outputs recorded by nursing, however there is a full canister at bedside fluid in tube is more clear suggestive of gastric output only a/p SBO improving abdominal exam stage IV lung CA with widely metastatic disease -- goal to manage non-op as abdomen may be hostile with carcinomatosis cont IV hydration, labs and electrolyte repletion Gastrografin challenge this morning - his nurse advised directly by me, fabby will do following CATHY ABARCA October 01, 2016 07:37
[2016-10-01] MEDS: Advair 250/50 Inhaler - 14 dose INH SCH ×2 (07:46→18:00)
[2016-10-01 07:55] VITALS: BP 128/50
[2016-10-01] MEDS: Pantoprazole Inj IVP SCH ×2 (08:24→20:31)
[2016-10-01] MEDS: Heparin 5000 units/ml inj SUBQ SCH ×2 (08:26→20:30)
--- NOTE | 2016-10-01 10:24 | General Progress Note ---
Assessment/Plan Assessment/Plan Assessment - Ileus, dysmotility, vs SBO - resolved blood tinged NGT drainage - Metastatic lung CA with poor Px - COPD, O2 dependent - HTN Recommendations - IV erythro - change suction to LIS - monitor CBC - await UGI - PPI - surgical f/u Subjective Allergies: Coded Allergies: No Known Allergies (Unverified , 03/22/12) Subjective abd less distended NGT output clear no BM for UGI Objective Last 24 Hour Vital Signs Date Time Temp Pulse Resp B/P Pulse Ox O2 Delivery O2 Flow Rate FiO2 10/01/16 07:55 98.4 89 20 128/50 95 Nasal Cannula 5.0 10/01/16 07:50 Nasal Cannula 5.0 10/01/16 07:48 91 10/01/16 07:46 88 18 95 Nasal Cannula 5.0 10/01/16 07:45 88 18 95 Nasal Cannula 5.0 10/01/16 07:44 88 18 Nasal Cannula 5.0 10/01/16 07:44 Nasal Cannula 10/01/16 07:44 Nasal Cannula 10/01/16 06:59 97.0 10/01/16 04:15 97.0 87 20 132/63 94 Room Air 10/01/16 04:00 84 10/01/16 03:21 Nasal Cannula 5.0 10/01/16 03:21 Nasal Cannula 4.0 10/01/16 00:14 Nasal Cannula 5.0 10/01/16 00:13 Nasal Cannula 4.0 10/01/16 00:00 87 10/01/16 00:00 97.9 88 20 115/61 99 Room Air 09/30/16 20:07 97.2 85 20 102/63 94 Nasal Cannula 2.0 09/30/16 20:00 Nasal Cannula 5.0 09/30/16 20:00 85 09/30/16 20:00 73 18 93 Nasal Cannula 5.0 09/30/16 20:00 73 18 93 Nasal Cannula 5.0 09/30/16 19:58 Nasal Cannula 5.0 09/30/16 19:58 78 18 Nasal Cannula 5.0 09/30/16 19:58 Nasal Cannula 4.0 09/30/16 16:00 94.0 83 18 123/53 Nasal Cannula 2.0 87 09/30/16 16:00 91 09/30/16 15:20 Nasal Cannula 4.0 09/30/16 15:20 Nasal Cannula 4.0 09/30/16 12:00 96.0 89 18 112/64 93 Room Air 09/30/16 12:00 92 09/30/16 11:06 Nasal Cannula 5.0 09/30/16 11:06 Nasal Cannula 5.0 Intake and Output 09/30/16 10/01/16 19:00 07:00 Intake Total 810 ml 110 ml Output Total 800 ml Balance 810 ml -690 ml Intake IV Total 810 ml 110 ml Output Urine Total 800 ml # Voids 4 Laboratory Tests 09/30/16 14:20: White Blood Count 5.5, Red Blood Count 2.88L, Hemoglobin 8.8L, Hematocrit 27.4L , Mean Corpuscular Volume 95, Mean Corpuscular Hemoglobin 30.6, Mean Corpuscular Hemoglobin Concent 32.1, Red Cell Distribution Width 15.5H, Platelet Count 281, Mean Platelet Volume 6.5, Neutrophils (%) (Auto) 74.4, Lymphocytes (%) (Auto) 8.0L, Monocytes (%) (Auto) 15.5H, Eosinophils (%) (Auto) 0.8, Basophils (%) (Auto) 1.2 10/01/16 05:35: White Blood Count 5.8, Red Blood Count 3.03L, Hemoglobin 9.2L, Hematocrit 29.0L , Mean Corpuscular Volume 96, Mean Corpuscular Hemoglobin 30.2, Mean Corpuscular Hemoglobin Concent 31.5L, Red Cell Distribution Width 15.7H, Platelet Count 274, Mean Platelet Volume 6.3L, Neutrophils (%) (Auto) 68.9, Lymphocytes (%) (Auto) 11.3L, Monocytes (%) (Auto) 16.9H, Eosinophils (%) (Auto ) 1.1, Basophils (%) (Auto) 1.8, Sodium Level 136, Potassium Level 3.6, Chloride Level 95L, Carbon Dioxide Level 30, Anion Gap 11, Blood Urea Nitrogen 7 , Creatinine 0.7, Estimat Glomerular Filtration Rate , Glucose Level 99, Calcium Level 7.0L Height (Feet): 5 Height (Inches): 11.00 Weight (Pounds): 146 Objective Thin WM NCAT supple Coarse ronchi and wheezes RRR Abd less distended, tympanitic no edema non focal ROSA BRYAN October 01, 2016 10:24
--- NOTE | 2016-10-01 10:59 | Endoscopy Procedure Note ---
Endoscopy Procedure Note Indication for Procedure: GIB, Anemia Procedures Performed: EGD, colonoscopy Operative Findings/Diagnosis: mild thomas, multiple rectal ulcers bx/bx Specimen: yes Pt Tolerated Procedure Well: Yes Estimated Blood Loss: none Anesthesiologist: see report Anesthesia: MAC Medication Given: see anesthesia record Implant(s) used?: No 50 yrs or older w/o bx or poly: Not Applicable 10yrs. F/U not recommended: Not Applicable If not recommended, why?: ROSA BRYAN October 01, 2016 10:58
--- NOTE | 2016-10-01 11:03 | Brief Operative Note ---
Immediate Post Operative Note Operative Note Chief Complaint: GIB , anemia Pre-op Diagnosis: gib, anemia Procedure: EGD/bx. colon/bx Post-op Diagnosis: multiple rectal ulcers Surgeon: perri Anesthesiologist: see report Anesthesia: MAC Specimen: yes Complications: none Condition: stable Estimated Blood Loss: none Drains: none Implant(s) used?: Yes ROSA BRYAN October 01, 2016 11:03
[2016-10-01 11:56] VITALS: BP 114/53
[2016-10-01] MEDS ORDERED: D5NS 1000ml IV ONE (13:26)
--- NOTE | 2016-10-01 13:45 | Internal Med Progress Note ---
Subjective Physician Name Sabas Wilkes Attending Physician Sabas Wilkes M.D. Current Medications Medications (Trade) Dose Ordered Sig/Romero Route PRN Reason Start Time Stop Time Status Last Admin Dose Admin Acetaminophen (Tylenol) 650 mg Q4H PRN ORAL Mild Pain (Pain Scale 1-3) 09/28/16 01:45 10/28/16 01:44 Albuterol/ Ipratropium (DuoNeb 0.5-3(2.5)mg/3ml) 3 ml Q4HRT HHN 09/28/16 03:00 10/03/16 02:59 09/28/16 10:50 Bisacodyl (Dulcolax) 10 mg DAILYPRN PRN RECTAL Constipation 09/28/16 15:15 10/28/16 15:14 Dextrose STAT PRN IV Hypoglycemia 09/28/16 01:45 10/28/16 01:44 Dextrose/Sodium Chloride (D5ns) 1,000 ml @ 100 mls/hr Q10H IV 09/28/16 15:00 10/28/16 14:59 10/01/16 13:00 Erythromycin Lactobionate/ Sodium Chloride (Erythromycin/ Sodium Chloride) 55 ml @ 110 mls/hr [id number] ERYTHROMYCIN IVPB 09/29/16 08:00 10/06/16 07:59 10/01/16 08:24 Glycerin (Glycerin) 1 supp BEDTIME RECTAL 09/29/16 21:00 10/29/16 20:59 09/30/16 22:06 Heparin Sodium (Porcine) (Heparin 5000 units/ml) 5,000 units EVERY 12 HOURS SUBQ 09/28/16 09:00 10/28/16 08:59 10/01/16 08:26 Lorazepam (Ativan) 1 mg Q4H PRN ORAL For Anxiety 09/28/16 01:45 10/05/16 01:44 Morphine Sulfate (Morphine Sulfate) 2 mg Q4H PRN IVP Moderate Pain (Pain Scale 4-6) 09/28/16 01:45 10/05/16 01:44 10/01/16 12:57 Morphine Sulfate (Morphine Sulfate) 4 mg Q4H PRN IVP Severe Pain (Pain Scale 7-10) 09/28/16 01:45 10/05/16 01:44 09/29/16 01:44 Ondansetron HCl (Zofran) 4 mg Q6H PRN IVP Nausea & Vomiting 09/28/16 01:45 10/28/16 01:44 Pantoprazole (Protonix) 40 mg Q12HR IVP 09/30/16 21:00 10/30/16 20:59 10/01/16 08:24 Salmeterol Xinafoate/ Fluticasone 1 puffs 1 puffs BID INH 09/29/16 09:00 10/29/16 08:59 10/01/16 07:46 Tiotropium [place] (Spiriva Inhaler) 1 puff DAILY INH 09/29/16 09:00 10/29/16 08:59 10/01/16 07:47 Allergies: Coded Allergies: No Known Allergies (Unverified , 03/22/12) Subjective NG tube output not recordered however canister is full patient reports severe abdominal pain no CP or SOB 12 pt ROS neg except above positives Objective Last Vital Signs Date Time Temp Pulse Resp B/P Pulse Ox O2 Delivery O2 Flow Rate FiO2 10/01/16 13:27 97.5 10/01/16 11:56 89 20 114/53 98 Nasal Cannula 5.0 09/30/16 16:00 87 General Appearance: WD/WN, alert EENT: PERRL/EOMI, normal ENT inspection, other - NGT Neck: non-tender, normal alignment Cardiovascular: normal rate, regular rhythm Respiratory/Chest: lungs clear, normal breath sounds Abdomen: non tender, soft Extremities: normal range of motion, non-tender Neurologic: alert, oriented x 3 Skin: normal pigmentation, warm/dry Laboratory Tests Test 09/30/16 14:20 10/01/16 05:35 White Blood Count 5.5 K/UL (4.8-10.8) 5.8 K/UL (4.8-10.8) Red Blood Count 2.88 M/UL (4.70-6.10) L 3.03 M/UL (4.70-6.10) L Hemoglobin 8.8 G/DL (14.2-18.0) L 9.2 G/DL (14.2-18.0) L Hematocrit 27.4 % (42.0-52.0) L 29.0 % (42.0-52.0) L Mean Corpuscular Volume 95 FL (80-99) 96 FL (80-99) Mean Corpuscular Hemoglobin 30.6 PG (27.0-31.0) 30.2 PG (27.0-31.0) Mean Corpuscular Hemoglobin Concent 32.1 G/DL (32.0-36.0) 31.5 G/DL (32.0-36.0) L Red Cell Distribution Width 15.5 % (11.6-14.8) H 15.7 % (11.6-14.8) H Platelet Count 281 K/UL (150-450) 274 K/UL (150-450) Mean Platelet Volume 6.5 FL (6.5-10.1) 6.3 FL (6.5-10.1) L Neutrophils (%) (Auto) 74.4 % (45.0-75.0) 68.9 % (45.0-75.0) Lymphocytes (%) (Auto) 8.0 % (20.0-45.0) L 11.3 % (20.0-45.0) L Monocytes (%) (Auto) 15.5 % (1.0-10.0) H 16.9 % (1.0-10.0) H Eosinophils (%) (Auto) 0.8 % (0.0-3.0) 1.1 % (0.0-3.0) Basophils (%) (Auto) 1.2 % (0.0-2.0) 1.8 % (0.0-2.0) Sodium Level 136 mEQ/L (135-145) Potassium Level 3.6 mEQ/L (3.4-4.9) Chloride Level 95 mEQ/L (98-107) L Carbon Dioxide Level 30 mEQ/L (20-30) Anion Gap 11 (5-15) Blood Urea Nitrogen 7 mg/dL (7-23) Creatinine 0.7 mg/dL (0.7-1.2) Estimat Glomerular Filtration Rate mL/min (>60) Glucose Level 99 mg/dL (74-106) Calcium Level 7.0 mg/dL (8.6-10.2) L Intake and Output 09/30/16 10/01/16 19:00 07:00 Intake Total 810 ml 110 ml Output Total 800 ml Balance 810 ml -690 ml Intake IV Total 810 ml 110 ml Output Urine Total 800 ml # Voids 4 Assessment/Plan Assessment/Plan ASSESSMENT: 1. SBO vs Ileus 2. Chronic obstructive pulmonary disease gold stage IV, on home oxygen. 3. Benign prostatic hypertrophy. 4. 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 5. History of heroine abuse. 6. Hypertension. 7. Insomnia. 8. Hypovolemic, hyponatremia and hyperkalemia. PLAN: 1. Telemetry. 2. Surgery consult with Dr. Suggs. 3. GI consult with Dr. John. 4. NPO. NGT on suction 5. Pain control 6. D5 NS at 100 mL/hour. 7. Gastrographin small bowel followthrough 8. Can consider Diagnostic laparoscopy to r/o peritoneal carcinomatosis causing SBO Code status is full code. DVT prophylaxis with heparin. SABAS WILKES M.D. October 01, 2016 13:45
[2016-10-01] MEDS ORDERED: HYDROmorphone 1mg/ml Carpuject IVP PRN (14:00)
[2016-10-01 15:55] VITALS: BP 123/55
[2016-10-01 20:00] VITALS: BP 152/75
[2016-10-01] MEDS: Hydromorphone 0.5mg/0.5ml inj IVP PRN (20:01)
[2016-10-01] MEDS: LORazepam Inj 2mg/ml 1ml IV SCH (21:00)
[2016-10-01] MEDS: Glycerin Supp RECTAL SCH (21:48)
[2016-10-02] VITALS: BP 157/77
[2016-10-02] MEDS: D5NS 1,000 ML IV SCH ×4 (00:01→18:30)
[2016-10-02] MEDS: Hydromorphone 0.5mg/0.5ml inj IVP PRN ×4 (01:54→21:21)
[2016-10-02] MEDS: Erythromycin Inj 50 MG in NS 55 ML IVPB SCH ×4 (01:54→20:30)
[2016-10-02] MEDS: DuoNeb 0.5-3(2.5)mg/3ml neb HHN SCH ×6 (03:00→23:00)
[2016-10-02 04:00] VITALS: BP 109/71
[2016-10-02] MEDS: Advair 250/50 Inhaler - 14 dose INH SCH ×2 (07:23→19:08)
[2016-10-02 08:00] VITALS: BP 131/64
--- NOTE | 2016-10-02 08:03 | General Progress Note ---
Progress Note Progress Note Surgery Has had multiple large BMs abdomen soft however still mild distension he denies nausea/burping. Has no appetite denies f/c avss nad unlabored soft mild distention, non tender in all quads including deep palp NGT 2.1 l out BM 2 - 3 large per reports labs reviewed AXR - personally reviewed - still with small bowel dilatation, however gastrografin spread thoughout small intestines a/p SBO resolving however may still have a partial SBO maintain the NGT will challenge the intestines with a miralax washout and 2 hour NGT clamp if persistent, this will magnify the obstruction, place NGT back on suction after 2 hours discussed with nursing, understands the protocol ice chips okay o/w NPO maintain hydration with dextrose in fluids replete lytes daily CATHY ABARCA October 02, 2016 08:03
[2016-10-02] MEDS: Pantoprazole Inj IVP SCH ×2 (08:50→20:30)
[2016-10-02] MEDS: Heparin 5000 units/ml inj SUBQ SCH ×2 (08:52→20:31)
[2016-10-02] MEDS ORDERED: Polyethylene Glycol 238gm bottle ORAL ONE ×2 (09:30→10:00)
--- NOTE | 2016-10-02 10:52 | Diagnostic Imaging Report ---
Indication: Abdominal distention Technique: Supine view of the abdomen Comparison: 4-1/2 hours earlier Findings: Exam taken 6 hours after nasogastric administration of Gastrografin demonstrates that there as been some forward transit of contrast, although contrast has not reached the colon. Small bowel loops remain mildly dilated Impression: Slow and incomplete forward transit of contrast through dilated small bowel loops. Findings remain inconclusive as regards small bowel obstruction versus ileus although suspicious for the former This agrees with the preliminary interpretation provided overnight by [facility] teleradiology service.
[2016-10-02 12:00] VITALS: BP 128/61
--- NOTE | 2016-10-02 12:35 | Diagnostic Imaging Report ---
Indication: Of nasogastric tube placement Technique: Supine view of the abdomen Comparison: 10/01/2016 Findings: Nasogastric tube has apparently been replaced. Tip now projects the level gastric fundus, proximal port at or proximal to the expected region of the gastroesophageal junction. Bowel contrast is again demonstrated. There appears to be contrast within the ascending colon, transverse colon, and splenic flexure. This is not optimally imaged, however. There is persistent small bowel distention. Impression: High position of nasogastric tube. Advancement recommended. This was previously discussed by phone with patient's nurse Since 10/01/2016, interim progression of contrast into the colon, indicating that if small bowel obstruction is present it is partial
--- NOTE | 2016-10-02 13:19 | Internal Med Progress Note ---
Subjective Physician Name Sabas Wilkes Attending Physician Sabas Wilkes M.D. Current Medications Medications (Trade) Dose Ordered Sig/Romero Route PRN Reason Start Time Stop Time Status Last Admin Dose Admin Acetaminophen (Tylenol) 650 mg Q4H PRN ORAL Mild Pain (Pain Scale 1-3) 09/28/16 01:45 10/28/16 01:44 Albuterol/ Ipratropium (DuoNeb 0.5-3(2.5)mg/3ml) 3 ml Q4HRT HHN 09/28/16 03:00 10/03/16 02:59 09/28/16 10:50 Bisacodyl (Dulcolax) 10 mg DAILYPRN PRN RECTAL Constipation 09/28/16 15:15 10/28/16 15:14 Dextrose STAT PRN IV Hypoglycemia 09/28/16 01:45 10/28/16 01:44 Dextrose/Sodium Chloride (D5ns) 1,000 ml @ 100 mls/hr Q10H IV 09/28/16 15:00 10/28/16 14:59 10/02/16 00:01 Erythromycin Lactobionate/ Sodium Chloride (Erythromycin/ Sodium Chloride) 55 ml @ 110 mls/hr [id number] ERYTHROMYCIN IVPB 09/29/16 08:00 10/06/16 07:59 10/02/16 08:50 Glycerin (Glycerin) 1 supp BEDTIME RECTAL 09/29/16 21:00 10/29/16 20:59 10/01/16 21:48 Heparin Sodium (Porcine) (Heparin 5000 units/ml) 5,000 units EVERY 12 HOURS SUBQ 09/28/16 09:00 10/28/16 08:59 10/02/16 08:52 Hydromorphone HCl (Dilaudid) 0.5 mg Q4H PRN IVP SEVERE BREAKTHROUGH PAIN 10/01/16 14:05 10/08/16 13:59 10/02/16 11:14 Lorazepam (Ativan 2mg/ml 1ml) 1 mg QHS IV 10/01/16 21:00 10/08/16 20:59 10/01/16 21:00 Lorazepam (Ativan) 1 mg Q4H PRN ORAL For Anxiety 09/28/16 01:45 10/05/16 01:44 Morphine Sulfate (Morphine Sulfate) 2 mg Q4H PRN IVP Moderate Pain (Pain Scale 4-6) 09/28/16 01:45 10/05/16 01:44 10/01/16 12:57 Morphine Sulfate (Morphine Sulfate) 4 mg Q4H PRN IVP Severe Pain (Pain Scale 7-10) 09/28/16 01:45 10/05/16 01:44 09/29/16 01:44 Ondansetron HCl (Zofran) 4 mg Q6H PRN IVP Nausea & Vomiting 09/28/16 01:45 10/28/16 01:44 Pantoprazole (Protonix) 40 mg Q12HR IVP 09/30/16 21:00 10/30/16 20:59 10/02/16 08:50 Salmeterol Xinafoate/ Fluticasone 1 puffs 1 puffs BID INH 09/29/16 09:00 10/29/16 08:59 10/02/16 07:23 Tiotropium [place] (Spiriva Inhaler) 1 puff DAILY INH 09/29/16 09:00 10/29/16 08:59 10/02/16 07:24 Allergies: Coded Allergies: No Known Allergies (Unverified , 03/22/12) Subjective NG tube output min abd pain better no nausea or vomiting having ice chips no CP or SOB 12 pt ROS neg except above positives Objective Last Vital Signs Date Time Temp Pulse Resp B/P Pulse Ox O2 Delivery O2 Flow Rate FiO2 10/02/16 12:00 97.4 90 18 128/61 Nasal Cannula 2.0 96 10/02/16 07:26 97 General Appearance: WD/WN, no apparent distress EENT: PERRL/EOMI, normal ENT inspection Neck: normal alignment, supple Cardiovascular: normal rate, regular rhythm Respiratory/Chest: lungs clear, normal breath sounds Abdomen: non tender, soft, distended Edema: trace edema Neurologic: alert, oriented x 3 Intake and Output 10/01/16 10/02/16 19:00 07:00 Intake Total 1110 ml 1320 ml Output Total 2550 ml 1150 ml Balance -1440 ml 170 ml Intake IV Total 1110 ml 1320 ml Output Urine Total 950 ml 600 ml Gastric Drainage Total 1600 ml 550 ml # Bowel Movements 2 Assessment/Plan Assessment/Plan ASSESSMENT: 1. SBO vs Ileus 2. Chronic obstructive pulmonary disease gold stage IV, on home oxygen. 3. Benign prostatic hypertrophy. 4. 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 5. History of heroine abuse. 6. Hypertension. 7. Insomnia. 8. Hypovolemic, hyponatremia and hyperkalemia. PLAN: 1. Telemetry. 2. Surgery consult with Dr. Suggs. 3. GI consult with Dr. John. 4. NPO. NGT on suction 5. Pain control 6. D5 NS at 100 mL/hour. 7. Gastrographin small bowel followthrough shows contrast throughout the colon. could have partial SBO 8. ice chips 9. miralax washout and 2 hour NGT clamp. monitor for BM discusses assessment and plan with patient, GI and surgery Code status is full code. DVT prophylaxis with heparin. SABAS WILKES M.D. October 02, 2016 13:19
[2016-10-02 16:00] VITALS: BP 119/60
[2016-10-02] MEDS ORDERED: D5NS 1000ml IV ONE (16:57)
[2016-10-02] MEDS ORDERED: Cetacaine Spray 50ml Btl TOPIC PRN (17:15)
[2016-10-02] MEDS ORDERED: Hurricaine 20% Spray ORO PRN (17:45)
[2016-10-02 20:00] VITALS: BP 144/72
[2016-10-02] MEDS: LORazepam Inj 2mg/ml 1ml IV SCH (20:30)
[2016-10-02] MEDS: Glycerin Supp RECTAL SCH (20:31)
--- NOTE | 2016-10-02 21:24 | General Progress Note ---
Assessment/Plan Assessment/Plan Assessment - suspect PSBO - Metastatic lung CA with poor Px - COPD, O2 dependent - HTN Recommendations - IV erythro - monitor CBC - PPI - surgical f/u Subjective Allergies: Coded Allergies: No Known Allergies (Unverified , 03/22/12) Subjective above noted UGI reviewed (+) BM but still distended c/o throat irritation Objective Last 24 Hour Vital Signs Date Time Temp Pulse Resp B/P Pulse Ox O2 Delivery O2 Flow Rate FiO2 10/02/16 20:00 97.4 63 20 144/72 97 Nasal Cannula 5.0 40 10/02/16 19:12 102 22 97 Nasal Cannula 5.0 40 10/02/16 19:12 Nasal Cannula 10/02/16 19:12 100 22 97 Nasal Cannula 5.0 10/02/16 19:11 Nasal Cannula 5.0 40 10/02/16 19:11 Nasal Cannula 10/02/16 19:10 100 22 Nasal Cannula 5.0 40 10/02/16 16:00 91 18 119/60 97 Room Air 10/02/16 15:26 93 10/02/16 15:07 Nasal Cannula 10/02/16 15:06 Nasal Cannula 10/02/16 12:00 97.4 90 18 128/61 Nasal Cannula 2.0 96 10/02/16 11:37 96 10/02/16 11:15 Nasal Cannula 10/02/16 11:15 Nasal Cannula 10/02/16 08:00 97.4 93 18 131/64 Nasal Cannula 2.0 100 10/02/16 07:43 95 10/02/16 07:40 Nasal Cannula 5.0 10/02/16 07:26 90 22 97 Nasal Cannula 5.0 10/02/16 07:25 90 22 97 Nasal Cannula 5.0 10/02/16 07:20 90 22 Nasal Cannula 5.0 10/02/16 07:19 Nasal Cannula 10/02/16 07:19 Nasal Cannula 10/02/16 04:00 97.2 90 20 109/71 97 Nasal Cannula 5.0 10/02/16 04:00 93 10/02/16 03:07 Nasal Cannula 10/02/16 03:07 Nasal Cannula 10/02/16 02:24 97.6 10/02/16 00:00 97.6 111 22 157/77 98 Nasal Cannula 5.0 10/02/16 00:00 94 10/01/16 23:21 Nasal Cannula 10/01/16 23:21 Nasal Cannula Intake and Output 10/01/16 10/02/16 18:59 06:59 Intake Total 1010 ml 1320 ml Output Total 2550 ml 1150 ml Balance -1540 ml 170 ml IV Total 1010 ml 1320 ml Output Urine Total 950 ml 600 ml Gastric Drainage Total 1600 ml 550 ml # Bowel Movements 2 Height (Feet): 5 Height (Inches): 11.00 Weight (Pounds): 146 Objective Thin WM NCAT supple Coarse ronchi and wheezes RRR Abd less distended, tympanitic no edema non focal ROSA BRYAN October 02, 2016 21:24
[2016-10-03] VITALS: BP 122/67
[2016-10-03] MEDS: Erythromycin Inj 50 MG in NS 55 ML IVPB SCH ×4 (02:05→21:42)
[2016-10-03] MEDS: D5NS 1,000 ML IV SCH ×2 (02:05→14:00)
[2016-10-03 04:29] VITALS: BP 110/98
[2016-10-03 08:03] VITALS: BP 126/58
[2016-10-03] MEDS: Advair 250/50 Inhaler - 14 dose INH SCH ×2 (08:08→19:46)
[2016-10-03] MEDS: Pantoprazole Inj IVP SCH ×2 (08:57→21:42)
[2016-10-03] MEDS: Heparin 5000 units/ml inj SUBQ SCH ×2 (09:00→21:45)
--- NOTE | 2016-10-03 09:15 | General Progress Note ---
Assessment/Plan Assessment/Plan Assessment - suspect PSBO - now having BM - Metastatic lung CA with poor Px - COPD, O2 dependent - HTN Recommendations - IV erythro - check KUB, 1 view - monitor CBC - PPI - surgical f/u - diet per surgery Subjective Allergies: Coded Allergies: No Known Allergies (Unverified , 03/22/12) Subjective above noted resting comfortably d/w RN (+) BM multiple NGT reinsertions Objective Last 24 Hour Vital Signs Date Time Temp Pulse Resp B/P Pulse Ox O2 Delivery O2 Flow Rate FiO2 10/03/16 08:03 96.8 80 20 126/58 96 Nasal Cannula 5.0 10/03/16 07:52 85 10/03/16 04:29 97.3 79 20 110/98 95 Simple Mask 5.0 10/03/16 03:49 93 10/03/16 00:00 97.9 99 20 122/67 97 Nasal Cannula 5.0 40 10/02/16 23:59 105 10/02/16 23:15 Nasal Cannula 10/02/16 23:10 Nasal Cannula 10/02/16 20:00 97.4 63 20 144/72 97 Nasal Cannula 5.0 40 10/02/16 19:54 102 10/02/16 19:12 102 22 97 Nasal Cannula 5.0 40 10/02/16 19:12 Nasal Cannula 10/02/16 19:12 100 22 97 Nasal Cannula 5.0 10/02/16 19:11 Nasal Cannula 5.0 40 10/02/16 19:11 Nasal Cannula 10/02/16 19:10 100 22 Nasal Cannula 5.0 40 10/02/16 16:00 91 18 119/60 97 Room Air 10/02/16 15:26 93 10/02/16 15:07 Nasal Cannula 10/02/16 15:06 Nasal Cannula 10/02/16 12:00 97.4 90 18 128/61 Nasal Cannula 2.0 96 10/02/16 11:37 96 10/02/16 11:15 Nasal Cannula 10/02/16 11:15 Nasal Cannula Intake and Output 10/02/16 10/03/16 19:00 07:00 Intake Total 1240 ml 1110 ml Output Total 700 ml 700 ml Balance 540 ml 410 ml Intake Oral 480 ml IV Total 760 ml 1110 ml Output Urine Total 200 ml 400 ml Gastric Drainage Total 500 ml 300 ml Height (Feet): 5 Height (Inches): 11.00 Weight (Pounds): 146 Objective Thin WM NCAT supple Coarse ronchi and wheezes RRR Abd less distended, tympanitic no edema non focal ROSA BRYAN October 03, 2016 09:15
[2016-10-03] MEDS: Hydromorphone 0.5mg/0.5ml inj IVP PRN ×3 (10:02→18:39)
--- NOTE | 2016-10-03 10:18 | General Progress Note ---
Progress Note Progress Note Surgery continues to have BMs - reported two additional. Denies nausea/burping appetite returning denies f/c AVSS NAD AAO soft, distended non tender in all quads imaging reviewed labs reviewed a/p on further discussion patient reports several months of nausea and fullness soft but distention with SB dilatation may be chronic from Stage IV CA mets is having BMs, hunger and output of the NGT is gastric at this point and non- bilious remove NGT advance diet slowly - start clears, advance from there CATHY ABARCA October 03, 2016 10:18
--- NOTE | 2016-10-03 10:51 | Diagnostic Imaging Report ---
Indication: Abdominal distention Technique: Supine view of the abdomen 2 hours after injection of 120 mL of Gastrografin into nasogastric tube Comparison: 09/29/2016 Findings: Contrast fills multiple mildly dilated small bowel loops. Stool is seen in the right colon. There is a nasogastric tube again demonstrated, tip projected at the level gastric body. Extensive parenchymal disease is seen at the right lung base. Impression: Nonspecific mild distention of contrast-filled small bowel loops. Ileus versus obstruction. This agrees with the preliminary interpretation provided overnight by [facility].
[2016-10-03 11:22] VITALS: BP 129/67
--- NOTE | 2016-10-03 12:38 | Diagnostic Imaging Report ---
Indication: Abdominal distention Technique: Supine view of the abdomen Comparison: 10/01/2016, as well as post nasogastric tube placement radiographs of 10/02 and 10/03/2016 Findings: Since 10/01 exam, there has been progression of essentially all of the ingested contrast into the colon. Small bowel loops remain dilated, gas-filled, although perhaps somewhat less so than on the prior study. Nasogastric tube is been advanced, tip now coiled in the gastric antrum and body. Impression: Since 10/01/2016, interim progression of previously ingested bowel contrast into the colon. This indicates that if small bowel distention is due to small bowel obstruction degree of obstruction is partial. However, ileus as etiology of distention is also a possibility
--- NOTE | 2016-10-03 12:54 | Diagnostic Imaging Report ---
Indication: Status post nasogastric tube repositioning Technique: One view of the chest Comparison: 11 hours earlier Findings: Interim advancement of nasogastric tube, tip now projected at the level gastric antrum body junction, proximal port well within the fundus. Again demonstrated is extensive bilateral pulmonary parenchymal mostly interstitial disease, right greater than left, with airspace disease and pleural fluid seen at the right lung base. Impression: Improved position of nasogastric tube, now satisfactory. Stable pulmonary parenchymal changes, as described This agrees with the preliminary interpretation provided overnight by [facility].
--- NOTE | 2016-10-03 12:54 | Diagnostic Imaging Report ---
Indication: Status post nasogastric tube repositioning Technique: One view of the upper abdomen Comparison: 3 hours earlier Findings: Interim advancement of nasogastric tube, shaft now making a hairpin loop at the level gastric antrum, tip pointed retrograde in the gastric body. Enteric contrast is seen within the colon. Parenchymal changes of the right lung base persists. Calcifications to the right of the spine are probably pleural calcifications demonstrated on recent CT. Impression: Improved position of nasogastric tube, as described Other findings as noted This agrees with the preliminary interpretation provided overnight by [facility].
[2016-10-03 15:19] VITALS: BP 120/63
[2016-10-03] MEDS: Morphine Sulfate 2mg/ml Inj IVP PRN (16:25)
[2016-10-03 20:00] VITALS: BP 134/66
[2016-10-03] MEDS: LORazepam Inj 2mg/ml 1ml IV SCH (21:43)
[2016-10-03] MEDS: Glycerin Supp RECTAL SCH (23:48)
--- NOTE | 2016-10-03 23:58 | Internal Med Progress Note ---
Subjective Physician Name Sabas Wilkes Attending Physician Sabas Wilkes M.D. Current Medications Medications (Trade) Dose Ordered Sig/Romero Route PRN Reason Start Time Stop Time Status Last Admin Dose Admin Acetaminophen (Tylenol) 650 mg Q4H PRN ORAL Mild Pain (Pain Scale 1-3) 09/28/16 01:45 10/28/16 01:44 Benzocaine (Hurricaine) 1 sprays Q4H PRN JOAQUINA SORE THROAT 10/02/16 17:45 11/01/16 17:44 Bisacodyl (Dulcolax) 10 mg DAILYPRN PRN RECTAL Constipation 09/28/16 15:15 10/28/16 15:14 Dextrose STAT PRN IV Hypoglycemia 09/28/16 01:45 10/28/16 01:44 Dextrose/Sodium Chloride (D5ns) 1,000 ml @ 100 mls/hr Q10H IV 09/28/16 15:00 10/28/16 14:59 10/03/16 14:00 Erythromycin Lactobionate/ Sodium Chloride (Erythromycin/ Sodium Chloride) 55 ml @ 110 mls/hr [id number] ERYTHROMYCIN IVPB 09/29/16 08:00 10/06/16 07:59 10/03/16 21:42 Glycerin (Glycerin) 1 supp BEDTIME RECTAL 09/29/16 21:00 10/29/16 20:59 10/03/16 23:48 Heparin Sodium (Porcine) (Heparin 5000 units/ml) 5,000 units EVERY 12 HOURS SUBQ 09/28/16 09:00 10/28/16 08:59 10/03/16 21:45 Hydromorphone HCl (Dilaudid) 0.5 mg Q4H PRN IVP SEVERE BREAKTHROUGH PAIN 10/01/16 14:05 10/08/16 13:59 10/03/16 18:39 Lorazepam (Ativan 2mg/ml 1ml) 1 mg QHS IV 10/01/16 21:00 10/08/16 20:59 10/03/16 21:43 Lorazepam (Ativan) 1 mg Q4H PRN ORAL For Anxiety 09/28/16 01:45 10/05/16 01:44 Morphine Sulfate (Morphine Sulfate) 2 mg Q4H PRN IVP Moderate Pain (Pain Scale 4-6) 09/28/16 01:45 6/2/17 01:44 10/03/16 16:25 Morphine Sulfate (Morphine Sulfate) 4 mg Q4H PRN IVP Severe Pain (Pain Scale 7-10) 09/28/16 01:45 10/05/16 01:44 09/29/16 01:44 Ondansetron HCl (Zofran) 4 mg Q6H PRN IVP Nausea & Vomiting 09/28/16 01:45 10/28/16 01:44 Pantoprazole (Protonix) 40 mg Q12HR IVP 09/30/16 21:00 10/30/16 20:59 10/03/16 21:42 Salmeterol Xinafoate/ Fluticasone 1 puffs 1 puffs BID INH 09/29/16 09:00 10/29/16 08:59 10/03/16 19:46 Tiotropium [place] (Spiriva Inhaler) 1 puff DAILY INH 09/29/16 09:00 10/29/16 08:59 10/03/16 08:11 Allergies: Coded Allergies: No Known Allergies (Unverified , 03/22/12) Subjective had BM 10/01 and 10/02 ng tube removed started on clear liquids no nausea, vomiting or abd pain 12 pt ROS neg except above positives Objective Last Vital Signs Date Time Temp Pulse Resp B/P Pulse Ox O2 Delivery O2 Flow Rate FiO2 10/03/16 20:00 97.6 90 21 134/66 98 Nasal Cannula 5.0 10/03/16 19:49 40 General Appearance: WD/WN, no apparent distress EENT: PERRL/EOMI, normal ENT inspection Neck: non-tender, supple Cardiovascular: regular rhythm Respiratory/Chest: lungs clear, normal breath sounds Abdomen: non tender, soft Extremities: normal range of motion, non-tender Neurologic: alert, oriented x 3 Skin: normal pigmentation, warm/dry Intake and Output 10/02/16 10/03/16 19:00 07:00 Intake Total 1240 ml 1110 ml Output Total 700 ml 700 ml Balance 540 ml 410 ml Intake Oral 480 ml IV Total 760 ml 1110 ml Output Urine Total 200 ml 400 ml Gastric Drainage Total 500 ml 300 ml Assessment/Plan Assessment/Plan ASSESSMENT: 1. Narcotic Bowel 2. Chronic obstructive pulmonary disease gold stage IV, on home oxygen. 3. Benign prostatic hypertrophy. 4. 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 5. History of heroine abuse. 6. Hypertension. 7. Insomnia. 8. Hypovolemic, hyponatremia and hyperkalemia. PLAN: 1. Telemetry. 2. Surgery consult with Dr. Suggs. 3. GI consult with Dr. John. 4. diet - start on clears and advance as tolerated 5. Pain control 6. D5 NS at 100 mL/hour. 7. Gastrographin small bowel followthrough shows contrast throughout the colon. could have partial SBO 8. ice chips 9. laxatives 10. NGT removed d/c planning if tolerating diet - 1-2 days Code status is full code. DVT prophylaxis with heparin. SABAS WILKES M.D. October 03, 2016 23:58
[2016-10-04] VITALS: BP 137/68
[2016-10-04] MEDS: Erythromycin Inj 50 MG in NS 55 ML IVPB SCH ×3 (01:49→14:00)
[2016-10-04] MEDS: D5NS 1,000 ML IV SCH ×2 (01:51→11:09)
[2016-10-04 04:00] VITALS: BP 125/70
[2016-10-04] MEDS: Morphine Sulfate 2mg/ml Inj IVP PRN ×2 (06:04→11:37)
[2016-10-04 08:00] VITALS: BP 128/70
[2016-10-04 08:01] LABS: BASOPHILS % (AUTO) 1.5 % (0.0-2.0); EOSINOPHILS % (AUTO) 2.4 % (0.0-3.0); LYMPHOCYTES % (AUTO) 11.3 % (20.0-45.0); MEAN CORPUSCULAR HEMOGLOBIN 29.6 PG (27.0-31.0); MEAN CORPUSCULAR HGB CONC 31.2 G/DL (32.0-36.0); MEAN CORPUSCULAR VOLUME 95 FL (80-99); MEAN PLATELET VOLUME 6.1 FL (6.5-10.1); MONOCYTES % (AUTO) 15.5 % (1.0-10.0); NEUTROPHILS % (AUTO) 69.2 % (45.0-75.0); PLATELET COUNT 292 K/UL (150-450); RED BLOOD COUNT 3.19 M/UL (4.70-6.10); RED CELL DISTRIBUTION WIDTH 15.3 % (11.6-14.8)
[2016-10-04 08:14] LABS: ANION GAP 12 (5-15); CALCIUM 6.9 mg/dL (8.6-10.2); CARBON DIOXIDE 30 mEQ/L (20-30); CHLORIDE 94 mEQ/L (98-107); CREATININE 0.7 mg/dL (0.7-1.2); HEMOLYSIS 5; POTASSIUM 3.6 mEQ/L (3.4-4.9); SODIUM 136 mEQ/L (135-145)
--- NOTE | 2016-10-04 08:19 | General Progress Note ---
Progress Note Progress Note Surgery tolerated clears x24 hours, no nausea/vomitting no BM either. Denies burping, still appetite AVSS NAD AAOx3 unlabored abdomen distended, non tender labs pending AXR - contrast through to colon, still some dilated loops SB a/p pSBO he reports that typically only a BM every other day at most regularly stage IV lung CA with mets is this a chronic problem due to peritoneal mets or more acute? if can avoid surgery would be optimal given history as may be a hostile abdomen and morbidity/mortality rates significantly elevated he reports that last several months, in general diet has been more difficult progressively See how diet goes today CATHY ABARCA Oct 04, 2016 08:19
[2016-10-04] MEDS: Heparin 5000 units/ml inj SUBQ SCH (08:35)
[2016-10-04] MEDS: Pantoprazole Inj IVP SCH (08:36)
[2016-10-04] MEDS ORDERED: Bisacodyl EC 5mg tab ORAL SCH (09:00)
[2016-10-04] MEDS: Advair 250/50 Inhaler - 14 dose INH SCH (09:44)
--- NOTE | 2016-10-04 11:34 | General Progress Note ---
Assessment/Plan Assessment/Plan Assessment - suspect PSBO - now having BM, but still distended and tight abd - poor surgical candidate due to advanced CA and chronic lung disease - Metastatic lung CA with poor Px - COPD, O2 dependent - HTN Recommendations - IV erythro - conservative management - ? hospice care - PPI - surgical f/u - po diet as tolerated Subjective Allergies: Coded Allergies: No Known Allergies (Unverified , 03/22/12) Subjective above noted resting comfortably still distended (+) BM Objective Last 24 Hour Vital Signs Date Time Temp Pulse Resp B/P Pulse Ox O2 Delivery O2 Flow Rate FiO2 10/04/16 09:47 93 18 100 Nasal Cannula 5.0 40 10/04/16 09:45 93 18 99 Nasal Cannula 5.0 10/04/16 08:00 104 10/04/16 08:00 97.9 96 18 128/70 95 Nasal Cannula 5.0 10/04/16 07:43 99 Nasal Cannula 5.0 10/04/16 07:42 Nasal Cannula 5.0 10/04/16 07:41 96 18 Nasal Cannula 5.0 40 10/04/16 04:00 97.0 94 22 125/70 96 Nasal Cannula 5.0 10/04/16 04:00 97 10/04/16 00:00 91 10/04/16 00:00 97.8 92 21 137/68 97 Nasal Cannula 5.0 10/03/16 20:00 97.6 90 21 134/66 98 Nasal Cannula 5.0 10/03/16 20:00 89 10/03/16 19:49 90 18 98 Nasal Cannula 5.0 40 10/03/16 19:49 91 18 98 Nasal Cannula 5.0 40 10/03/16 19:48 Nasal Cannula 5.0 40 10/03/16 19:48 91 18 Nasal Cannula 5.0 40 10/03/16 19:09 96.8 10/03/16 16:55 96.8 10/03/16 15:19 96.8 87 20 120/63 97 Nasal Cannula 5.0 10/03/16 15:08 87 10/03/16 11:51 92 Intake and Output 10/03/16 10/04/16 19:00 07:00 Intake Total 2260 ml 610 ml Output Total 1100 ml 500 ml Balance 1160 ml 110 ml Intake Oral 1000 ml IV Total 1260 ml 610 ml Output Urine Total 1000 ml 500 ml Gastric Drainage Total 100 ml Laboratory Tests 10/04/16 07:45: White Blood Count 6.0, Red Blood Count 3.19L, Hemoglobin 9.4L, Hematocrit 30.2L , Mean Corpuscular Volume 95, Mean Corpuscular Hemoglobin 29.6, Mean Corpuscular Hemoglobin Concent 31.2L, Red Cell Distribution Width 15.3H, Platelet Count 292, Mean Platelet Volume 6.1L, Neutrophils (%) (Auto) 69.2, Lymphocytes (%) (Auto) 11.3L, Monocytes (%) (Auto) 15.5H, Eosinophils (%) (Auto ) 2.4, Basophils (%) (Auto) 1.5, Sodium Level 136, Potassium Level 3.6, Chloride Level 94L, Carbon Dioxide Level 30, Anion Gap 12, Blood Urea Nitrogen 6L, Creatinine 0.7, Estimat Glomerular Filtration Rate , Glucose Level 128H, Calcium Level 6.9L Height (Feet): 5 Height (Inches): 11.00 Weight (Pounds): 146 Objective Thin WM NCAT supple Coarse ronchi and wheezes RRR Abd distended, tympanitic no edema non focal ROSA BRYAN Oct 04, 2016 11:34
[2016-10-04 12:00] VITALS: BP 120/75
--- NOTE | 2016-10-04 13:01 | Discharge Summary ---
Discharge Summary Hospital Course Date of Admission September 28, 2016 at 01:20 Date of Discharge Admitting Diagnosis small bowel obstruction NIKKY Jackson is a 71 year old male who was admitted on September 28, 2016 at 01:20 for Small Bowel Obstruction Discharge Discharge Disposition Patient was discharged to Discharge Diagnoses: CHRISTIANE WILKES M.D. Oct 04, 2016 13:01
--- NOTE | 2016-10-04 13:18 | Discharge Instructions ---
Discharge Instructions Discharge Instructions Follow up with: Dr. Do at [facility] Call MD/Return to Hospital if: worsening abd pain, nausea, vomiting or worsening abd distention Diet: low residue/fiber Resume Normal Activity?: Yes For Congestive Heart Failure Reminder Report to your physician any weight gain of 5 pounds or more in one week. CHRISTIANE WILKES M.D. Oct 04, 2016 13:18
[2016-10-04] MEDS ORDERED: D5NS 1000ml IV ONE (15:43)
[2016-10-04] MEDS ORDERED: Miralax 17gm pkt ORAL SCH (21:00)
[2016-10-04] MEDS ORDERED: Glycerin Supp RECTAL ONE (21:00)
--- NOTE | 2016-10-05 09:45 | Discharge Summary ---
DATE OF ADMISSION: 09/28/2016 DATE OF DISCHARGE: 10/04/2016 NOTE: POOR AUDIO QUALITY REASON FOR ADMISSION: Small bowel obstruction versus ileus. HISTORY OF PRESENT ILLNESS: This is a 71-year-old male with history of metastatic lung cancer with mets to the bone, who was undergoing chemotherapy as well as radiation therapy at [facility], chronic respiratory failure secondary to COPD on three liters home O2, and BPH, who presented to the emergency room with distended abdomen and nausea. He had CT of his abdomen and pelvis, which showed dilated small intestine with no clear transition point. The patient has NG tube placed on suction and was made NPO. The patient was seen by General Surgery, Dr. John for Gastroenterology, and for General Surgery. The patient did have bowel movement and was started on clear liquids severe constipation likely secondary to narcotics versus partial small bowel obstruction. Single IV contrast Gastrografin study did show Gastrografin in the colon eliminating possibilities of complete bowel obstruction. There is possibility the patient has carcinomatosis partial small bowel obstruction. The patient at this time wants to go home and follow up with . I spoke with him about the poor prognosis and very high probability of recurrent . DISCHARGE CONDITION: Stable. DISCHARGE INSTRUCTIONS: The patient to follow up with his physician. The patient is to return to the hospital for worsening condition. The patient to ambulate as tolerated. The patient Senna as well as Dulcolax suppositories. DISCHARGE DIAGNOSES: 1. Partial small bowel obstruction, possibly secondary to carcinomatosis versus ileus/narcotic . 2. Chronic respiratory failure secondary to chronic obstructive pulmonary disease on home O2. 3. Metastatic lung cancer with mets to the bone. 4. Benign prostatic hypertrophy. TIME SPENT ON DISCHARGE: Greater than 35 minutes. Sabas Haile MD DR: Alexis JOB#: [id number] CC:
== END 2016-10-04 15:44 | disposition home or self-care (01) | DRG 389 ==
LOC: ENRESERV → ENRESERVTM → ENRESERVDT → EDUNIT# 22:51 → EDBD 22:51 → EMR 23:00 → 4W 09-28 01:20 → EDBEDREQ 09-28 02:40 → EDBEDREQSVC 09-28 02:57 → EDBEDREQ 09-28 04:05 → 2E 09-28 06:22
DX: K56.60 Unspecified intestinal obstruction (principal); C79.31 Secondary malignant neoplasm of brain; J96.10 Chronic respiratory failure, unspecified whether with hypoxia or hypercapnia; C79.51 Secondary malignant neoplasm of bone; C34.91 Malignant neoplasm of unspecified part of right bronchus or lung; E86.1 Hypovolemia; E87.1 Hypo-osmolality and hyponatremia; I10 Essential (primary) hypertension; K62.6 Ulcer of anus and rectum; J44.9 Chronic obstructive pulmonary disease, unspecified; E87.5 Hyperkalemia; N40.0 Benign prostatic hyperplasia without lower urinary tract symptoms; Z99.81 Dependence on supplemental oxygen; G47.00 Insomnia, unspecified; Z87.891 Personal history of nicotine dependence; F11.21 Opioid dependence, in remission
CPT/HCPCS: 36415; 74000; 74177; 80048; 80053; 81001; 83690; 84484; 85007; 85025; 85610; 85730; 94640; 94664; 94760; J2405; J7620